=== PATIENT | male | born 1965 | race Caucasian/White ===

== ENCOUNTER 2017-12-05 08:18 | Inpatient (IN) | payer OTHER, SELFPAY ==
[2017-10-02 12:43] VITALS: BMI 34.0
[2017-12-05] VITALS (15 sets, daily range): BP systolic 140–163; BP diastolic 78–110; PULSE 78–96; RESP 10–20; TEMP 36.4–37.1; O2SAT 93–98; BMI 34.0
--- NOTE | 2017-12-05 | DI.RAD.S_ITS ---
PROCEDURE: XR KNEE LT 1TO2V INDICATIONS: POST OP TOTAL LEFT KNEE TECHNIQUE: 2 view(s) of the knee acquired. [facility] [place], MARIELENA, XR KNEE ARTHRITIC SERIES BI, 08/23/2017, 11:03. FINDINGS: Bones: Patient is status post knee joint arthroplasty. Hardware components are in expected positions. Visualized bony structures are intact. Soft tissues: Overlying postoperative changes are noted. IMPRESSION: Acute postoperative changes total left knee arthroplasty. Dictated by: Michael Bowie M.D. on 12/05/2017 at 14:23 Approved by: Michael Bowie M.D. on 12/05/2017 at 14:24
[2017-12-05] MEDS: ACETAMINOPHEN 325 MG TABLET 975 MG PO ×3 (09:10→21:04)
[2017-12-05] MEDS: CELECOXIB 200 MG CAPSULE PO (09:11)
[2017-12-05] MEDS: PREGABALIN 75 MG CAPSULE PO (09:11)
[2017-12-05] MEDS: LACTATED RINGERS 1,000 ML 42 ML IV (09:30)
--- NOTE | 2017-12-05 10:50 | SUR.OPER ---
Supine on padded OR bed. Pillow under head, arms secured on padded armboards <90 degree abduction. Safety belt across torso. Non-operative leg secured with tape over blanket over lower leg. Operative leg secured in DeMayo/Bob positioner. Foam padded brace at thigh of operative leg.
--- NOTE | 2017-12-05 10:54 | PM.PREOP ---
Pre-operative Note Interval Note Pre-op Check: Yes History & Physical Reviewed by Physician and Yes Exam Performed Changes: No
--- NOTE | 2017-12-05 10:55 | P.OP_ITS ---
Operative Date/Time/Diagnoses Date of procedure: 12/05/17 Time of procedure: 13:15 Pre-op diagnosis: Left knee osteoarthritis Post-op diagnosis: same Procedure & Clinicians Procedure: Left total knee arthroplasty Same procedure as scheduled: Yes Indications: The patient presents today for total knee arthroplasty after failure of conservative treatment. The nature of the procedure including the risks and benefits, alternatives, postoperative course and expected outcome were discussed and all questions answered. Consent was obtained. Operative site confirmed and marked. Surgeon: Joseph Yanes Construction Worker: Lucero Mcclellan Anesthesia Type: General, Spinal, Peripheral nerve block and Local Operative Notes Findings: Severe osteoarthritis with varus alignment. Range of motion after anesthesia was 5-95 degrees. Closure Type: primary Specimen(s): none sent Implants & Drains: [employer] BCS: 6 femoral component, 7 tibial component, 9 mm BCS polyethylene tray and 35 x 9 mm round patella Applied: implant(s) Estimated Blood Loss (mL): 50 Tourniquet time (min): 46 Procedure in detail: The patient was taken to the operative suite and placed under spinal and general anesthesia with an adductor nerve block. The patient was given prophylactic antibiotics prior to surgery. The patient was also given tranexamic acid, 1 g, just prior to surgery for postoperative hemostasis. [The lateral knee was prepped and the joint injected with 20 mL of 1% Lidocaine with epinephrine. ] The knee was then prepped and draped in usual sterile fashion. The leg was exsanguinated with an Esmarch dressing and the tourniquet raised to [250] torr. A 15 cm anterior incision was made. Next a medial trivector arthrotomy was made. The extensor mechanism was marked to ensure accurate repair. Initial exposing dissection was carried out medially and laterally. The knee was then extended and the patellar thickness was measured and a cut made removing approximately [9] mm of bone[ with a goal of restoring normal patellar thickness ]. The patella was then sized and drilled. Some excess lateral bone was excised and the patellofemoral ligament released. The tourniquet was then released. The knee was then flexed and the [employer] femoral guide was placed. The anterior pins were placed and the distal rotation holes drilled. The distal cutting guide was placed and the templated distal femoral cut was made. The templating cutting block was then placed and the anterior, posterior and chamfer cuts made. The [employer] tibial guide was placed and the alignment checked along the axis of the proximal tibial with a renea. The proximal tibial cut was then made with an oscillating saw. All meniscus and bony debris was then removed. Flexion extension gaps were checked. After routine removal of osteophytes there was still some slight medial tightness which was released with a 18 gauge needle in the mcl. The soft tissues were then injected with a combination of [20 mL of half percent Marcaine with epinephrine and 20 mL of Exparel]. The trial components were then placed. The knee went into full extension and flexion beyond 120?. There was [excellent] medial- lateral balance throughout motion. Patellar tracking was [excellent]. The trial components were removed and size is confirmed for the final implants. The knee was then exsanguinated with an Esmarch dressing and the tourniquet reapplied for cementing. The knee was cleansed with Pulsavac irrigation and dried. The final components were cemented in with high viscosity vacuum mixed bone cement with antibiotics. The knee was held in extension and the patellar clamp until the cement had adequately cured. The knee was then irrigated with dilute Betadine solution. The extensor mechanism was closed with 5 interrupted #1 Vicryl sutures in 90 degrees of flexion. [The joint was then injected with a combination of 1 g of tranexamic acid and 20 mL of quarter percent Marcaine with epinephrine.] The subcutaneous tissue was closed with 2-0 Vicryl. The skin was closed with [ micah and surgical adhesive]. [ An Aquacell] dressing and Anant wrap were then applied. Complications: none Condition: stable Disposition: PACU Plan for aftercare: Routine postoperative protocol for total knee arthroplasty. Aspirin for DVT prophylaxis. Discharge home tomorrow.
--- NOTE | 2017-12-05 11:16 | SUR.PREOP ---
Block start time 1100[] . Monitoring initiated and maintained throughout procedure. Oxygen and medications given per anesthesiologist instructions. Patient remained stable throughout procedure, no adverse reactions noted. Block end time 1109[].
--- NOTE | 2017-12-05 11:18 | PM.PROC.1 ---
Procedures Date/Time Date of procedure: 12/05/17 Time of procedure: 10:55 General Procedure description: Ultrasound guided adductor canal nerve block for post op pain control after Left TKA by Dr. Yanes. Risk and benefits of procedure discussed with patient. ASA monitoring applied to patient. O2 given via nasal cannula. 2 mg Versed and 50 mcg fentanyl given for procedural sedation. Skin site was prepped with chlorhexidine and allowed to fully dry. Sterile gloves, mask, hat and probe cover were used to maintain sterility. 2% lidocaine and 30ga needle was used to make a small skin wheal at needle insertion site. Under ultrasound guidance, a 21ga 100mm Pajunk needle was directed into the adductor canal near femoral artery and saphenous nerve at the level of mid thigh. Patient reported no parasthesias. After negative aspiration, 20 mL 0.5% ropivicaine and 10mg dexamethasone were injected around saphenous nerve. Patient tolerated procedure well.
--- NOTE | 2017-12-05 11:23 | SUR.PREOP ---
pt monitored on pulse ox until he leaves for OR currently pulse 66 and o2 sat on room air is 98%.
[2017-12-05] MEDS: CEFAZOLIN 1 GM VIAL 2 GM IV (11:30)
[2017-12-05] MEDS: LIDOCAINE 1% W/EPI INJ 20 ML INJ (12:00)
[2017-12-05] MEDS: BUPIVACAINE 0.5% W/ EPI (PF) 20 ML, BUPIVACAINE LIPOSOME 266 MG, SODIUM CHLORIDE 0.9% 2... INJ (12:39)
[2017-12-05] MEDS: POVIDONE-IODINE 15 ML, SODIUM CHLORIDE 0.9% 250 ML TOP (12:40)
[2017-12-05] MEDS: BUPIVACAINE 0.5% (PF) 10 ML, TRANEXAMIC ACID 1,000 MG, SODIUM CHLORIDE 0.9% 20 ML INJ (12:40)
--- NOTE | 2017-12-05 14:02 | SUR.PHASEI ---
Mild confusion when awake throughout PACU stay.
[2017-12-05] MEDS: OXYCODONE/ACETAMINOPHEN 5/325 TABLET 1 TAB PO (14:05)
--- NOTE | 2017-12-05 14:34 | SUR.PHASEI ---
Inhaler with clothes to room 209.
--- NOTE | 2017-12-05 14:56 | PC.NURSE ---
Patient has all four rails up in bed and bed alarm on. Per nurse Morrison
--- NOTE | 2017-12-05 14:57 | PC.NURSE ---
1425 Pt arrived from PACU via bed to room 209. Pt is aswake, OX3, Saline lock LUE. Pt has hx of htn, B/p 150/101. Pt states uses garlic and cranberry juice to reduce B/P. R TKA site is covered with an sophy wrap. CMS +, Pt denies pain at this time. Family at bedside. The Mom took Pt wallet & watch home. 1450 Pt taking in juice &crackers, denies nausea. 1510 Pt oob for ambulation in peter with PT.
--- NOTE | 2017-12-05 15:25 | PT.IIE ---
Current Diagnoses Unilateral primary osteoarthritis, left knee (12/05/17) Surgery Performed Operation Date: 12/05/17 10:15 Actual Procedures p Total Knee Arthroplasty(Left) - Joseph Yanes MD Surgical History (Last Updated 10/02/17 @ 13:46 by Florinda Macedo, RN) History of shoulder surgery (Acute) Hx of arthroscopy of left knee (Acute) Hx of repair of left rotator cuff (Acute) Hx of tonsillectomy (Acute) Medical History (Last Updated 10/02/17 @ 14:10 by Florinda Macedo RN) Asthma (Acute) Cervical spinal cord injury (Acute) Depression (Acute) Dupuytren's contracture of both hands (Acute) Finger amputation, traumatic (Acute) GERD (gastroesophageal reflux disease) (Acute) HTN (hypertension) (Acute) Lumbar spinal cord injury (Acute) PTSD (post-traumatic stress disorder) (Acute) Spinal stenosis (Acute) [place] teeth extracted (Acute) Physical Therapy Inpatient Evaluation/Re-Eval M1 PT/OT-IP Prior Functional Status Start: 12/05/17 15:52 Freq: NEEDED Status: Active Protocol: Document 12/05/17 14:58 MDD (Rec: 12/05/17 16:03 MDD [email or web address]) Medical Review Prior Functional Status Medical History Reviewed Yes Communication nml Mobility and Gait independent Activities of Daily Living and IADL's independent Prior Functional Level (Other details) independent Social History Household Members none Living Arrangements House Number of Floors (Floors) One Floor Number of Stairs To Enter/Railing? 4 steps, R railing when ascending Home Environment High Toilet Walk in Shower Home Equipment Front Wheel Walker Straight Cane Crutches Raised Toilet Seat w/Armrests Employment Status Retired Additional Social History Comment Pt has lofstrand crutches at home. His mother is coming to stay with him initially after surgery. Has a friend coming to pick him up from the hospital upon d/c. Notes that he has close neighbors that can assist if needed as well. M2 PT-IP Current Condition Start: 12/05/17 15:52 Freq: NEEDED Status: Active Protocol: Document 12/05/17 14:58 MDD (Rec: 12/05/17 16:03 MDD [email or web address]) Physical Therapy Current Condition Current Condition Evaluation Date 12/05/17 Treatment Diagnosis s/p L TKA Onset Date 12/05/17 Weight Bearing Status Weight Bearing Status Weight Bear as Tolerated M3 PT-IP Subjective Start: 12/05/17 15:52 Freq: NEEDED Status: Active Protocol: Document 12/05/17 14:58 MDD (Rec: 12/05/17 16:03 MDD [email or web address]) Subjective Physical Therapy Visit Type Type Initial Evaluation Visit Start Time 14:58 Visit Stop Time 15:25 Total Visit Minutes 27 Number of FINAL ASSEMBLY INSPECTOR Visits 0 Physical Therapy Visit Comments Patient Comments Pt reporting pain in L knee but agreeable to participation in PT eval this afternoon. Had just recieved pain medication at start of session , but reports that he gets really sedated and would prefer to participate before they kick in. Therapy Pain Assessment Pain When Pain Assessed At Rest Pain Present Pain Present Pain Reported Location Left Knee Intensity 5 Scale Used Numeric (1 - 10) Description Aching Pressure M4 PT-IP Mobility and Gait Start: 12/05/17 15:52 Freq: NEEDED Status: Active Protocol: Document 12/05/17 14:58 MDD (Rec: 12/05/17 16:03 MDD [email or web address]) PT-Bed Mobility Assessment Rolling Type of Rolling Roll to Left Level of Assist Standby Assistance Supine to Sit Supine to Sit Standby Assistance Sit to Supine Sit to Supine Standby Assistance Scooting Scooting to Edge of Bed Independent Scooting Up and Down in Bed Independent PT-Transfer Assessment Sit to and From Stand Sit to and from Stand Contact Guard Assistance Equipment Transfer Assistive Device Gait Belt Front Wheeled Walker Transfers Transfer Destination Toilet Transfer Ability Level of Assist Contact Guard Assistance Gait Assessment Gait Gait Assistance Required: Contact Guard Assist Distance (Feet) (feet) 212 Able to Maintain Weight Bearing Status Yes During Gait Assistive Devices Assistive Device Front Wheeled Walker Gait Deviations General Gait Pattern Antalgic Wide Based Gait PT-Balance Assessment Sitting Balance and Reactions Static Sitting Balance Ability Normal Dynamic Sitting Balance Ability Normal Standing Balance and Reactions Static Standing Balance Ability Good Dynamic Standing Balance Ability Good M5 PT-IP Objective Assessments Start: 12/05/17 15:52 Freq: NEEDED Status: Active Protocol: Document 12/05/17 14:58 MDD (Rec: 12/05/17 16:03 MDD [email or web address]) Orientation Orientation/Cognition Level of Alertness Alert Orientation Name Age Birthday Month Date Year Day of Week Place Situation Language Function Ability No Deficits Noted Safety Awareness Understands Safety Issues Memory Description No Deficits Noted Gross Range of Motion Lower Extremity ROM Assessment Within Functional Limits Strength Lower Extremity Strength Assessment Within Functional Limits Sensation Assessment Sensation Gross Sensation WNL M6 PT-IP Treatment Start: 12/05/17 15:52 Freq: NEEDED Status: Active Protocol: Document 12/05/17 14:58 MDD (Rec: 12/05/17 16:03 MDD [email or web address]) Physical Therapy Treatment Exercises Knee ROM Measurement 0-89 Education Education Provided Precautions Weight Bearing Status Post-Op Packet Safety M7 PT-IP Assessment and Plan Start: 12/05/17 15:52 Freq: NEEDED Status: Active Protocol: Document 12/05/17 14:58 MDD (Rec: 12/05/17 16:03 MDD [email or web address]) PT Summary Assessment and Plan Potential Rehabilitation Potential Excellent Status of Condition at Evaluation Stable Summary Impairments Pain ROM Balance Bed Mobility Transfers Gait Activity Tolerance Progress Towards Goals Progressing Toward Goals Assessment Summary Pt demonstrates SBA to independent bed mobility. Demonstrated safety with gait up to 212 feet with CGA. Will benefit from stair training prior to d/c. Goals Bed Mobility Goal Independent Transfer Goal Independent Gait Goal Independent Gait Distance 200 feet Other Goals Ascend/descend 4 stairs with R hand railing Days to Meet Goals 3 Frequency of Treatment Frequency Of Treatment Twice a Day Treatment Plan Physical Therapy Treatment Plan Gait Training Therapeutic Exercise Other Recommendations and Next Treatment stair training perhaps with Focus cane or lofstrand crutch if needed. Review HEP. Recommendations To Nursing Amount of Assist Needed 1 Person Assist Discharge Recommendations PT Discharge Recommendations Home Home with Assistance
[2017-12-05] MEDS: LACTATED RINGERS 1,000 ML 125 ML IV ×2 (15:28→23:30)
[2017-12-05] MEDS: OXYCODONE IR 5 MG TABLET 10 MG PO ×3 (17:09→23:31)
--- NOTE | 2017-12-05 18:47 | PC.NURSE ---
Pt up with physical therapy ambulatory in hallway. Returned to bed. Rates pain to left knee 3-4 and dull in nature. Administered oxycodone as ordered. C/M/S intact to LLE. Anant wrap with ice to site. BL calf scd's in place. Up to bathroom with assist x 1. Steady gait. Able to void. Taking general diet well. Pt reports anticipates discharge to home tomorrow.
[2017-12-05] MEDS: CEFAZOLIN 2 GM/100 ML FROZ.PIGGY IV (19:53)
[2017-12-05] MEDS: ASPIRIN EC 81 MG TABLET PO (23:30)
--- NOTE | 2017-12-06 01:15 | PC.NURSE ---
Addendum entered by Radha Dozier R.N. 12/06/17 06:02: Slept at intervals. Earlier stated pain was only 2/10 and declined intervention but now states pain is 5/10 so medicated with Oxycodone. Offered ice pack but patient declines. SCD's off for past hour and now replaced. Original Note: Patient is alert and oriented; very talkative and detailed in conversation. Breath sounds CTA with RA sat of 98%. HRR. Denies nausea. BT present and states he is passing flatus. Stood at side of bed to use urinal and seemed steady on feet. Was able to get in/out of bed independently. Denies dysuria, frequency, urgency or incontinence. Anant wrap to left knee is CDI. At shift change he had complained of 5/10 left knee (above patella) pain and was medicated with Oxycodone and now states he is pain free. CMS is intact. Wearing bilateral SCD's. Due to hx of falls his fall risk assessment is high so bed alarm is activated.
[2017-12-06 04:15] VITALS: BP 136/84; PULSE 85; RESP 16; TEMP 36.5; O2SAT 97
[2017-12-06] MEDS: CEFAZOLIN 2 GM/100 ML FROZ.PIGGY IV (04:29)
[2017-12-06] MEDS: PANTOPRAZOLE 40 MG TABLET PO (05:56)
[2017-12-06] MEDS: OXYCODONE IR 5 MG TABLET 10 MG PO ×2 (05:59→11:26)
[2017-12-06 06:25] LABS: Hematocrit 39.6 % (41-53); Hemoglobin 13.4 g/dL (13.5-17.5)
--- NOTE | 2017-12-06 07:34 | PM.DS.1 ---
History of Present Illness Date Patient Seen: 12/06/17 Time Patient Seen: 07:00 Chief complaint: [address] Narrative: Patient seen post-op day #1 s/p L. TKA. Doing well, pain is well controlled and is ambulating well with PT. Denies SOB, CP, or calf pain. Discharge Providers Date of admission: 12/05/17 08:18 Consults: 12/05/17 14:18 Consult to Discharge Planning Routine Comment: Consult to Physical Therapy Evaluate & Treat Comment: Physician Instructions: postop TKA protocol Consult to Respiratory Therapy Evaluate & Treat Comment: Physician Instructions: Evaluate and treat Discharge provider: Lucero Mcclellan PA-C Summary Discharge Diagnosis: left knee osteoarthritis Hospital Course: Patient admitted s/p L. TKA on 12/05/17. Patient tolerated the procedure well with no complications. Patient transferred to the acute care floor. He was seen by PT who recommended that he be discharged with outpatient PT. Patient was stable and ready for d/c on 12/06/17. Status at Discharge Cognitive/behavioral status at discharge: A&Ox4 Functional status at discharge: uses cane/walker Overall status at discharge: patient is progressing back to baseline Time Spent with Patient Less than 30 minutes Exam Vital Signs (past 8 hours): - 12/06/17 04:15 Temperature 97.7 F Pulse Rate 85 Respiratory Rate 16 Blood Pressure 136/84 H Pulse Oximetry 97 Oxygen Delivery Method Room Air Narrative Exam Narrative: Well-developed well-nourished in no acute distress. Patient is alert and oriented x3. On examination surgical dressing is clean dry and intact with no signs of discharge. Calf is soft and compressible. He has full range of motion of the ankle and hip. Patient is neurovascularly intact in the surgical extremity. Objective Labs Result Diagrams: 12/06/17 05:48 Labs: Laboratory Results - last 24 hr 12/06/17 05:48 Hgb 13.4 L Hct 39.6 L Discharge Plan Discharge Plan Patient Disposition: Home, Self-Care Discharge Med Rec/Prescriptions Prescriptions: New acetaminophen 325 mg Tablet 975 mg PO TID Qty: 0 RF: 0 aspirin 81 mg Tablet,Delayed Release (Dr/Ec) 81 mg PO BID Qty: 0 RF: 0 oxycodone 5 mg Tablet 5 mg PO Q3HR PRN (Reason: Pain, Moderate (4-6)) Qty: 0 RF: 0 Continue meloxicam 15 mg Tablet 15 mg PO DAILY PRN (Reason: pain) RF: 0 lidocaine 4 % Cream 1 applic TOPICAL QID PRN (Reason: pain) RF: 0 omeprazole 40 mg Capsule,Delayed Release(Dr/Ec) 40 mg PO DAILY PRN (Reason: gerd) RF: 0 sildenafil [Viagra] 100 mg Tablet 100 mg PO DAILY PRN (Reason: Sexual Activity) RF: 0 fluoxetine 10 mg Capsule 10 mg PO DAILY RF: 0 albuterol sulfate 90 mcg/actuation Hfa Aerosol Inhaler 2 puff INHALATION Q4-6H PRN (Reason: Asthma) RF: 0 Discontinued diclofenac sodium 1 % Gel 2 g TOPICAL QID RF: 0 Follow up/Referrals: [facility] [Provider Group] (Follow up in the office in 5-7 days as previously scheduled) Provider Discharge Instructions Diet: Diet as Tolerated Activity: WBAT, use walker to ambulate Cold/Heat Therapy: ice for 20 minutes at a time at least once an hour while awake Wound Care Report to your healthcare provider any signs of infection, such as:: chills, fever, night sweats, increased pain and unusual drainage Dressing: Keep Aquacel dressing clean and dry. May remove sophy wrap tomorrow Visit Report/Discharge Packet Instructions: DI for Knee Replacement Visit Report Forms: Stroke Signs & Symptoms Discharge Data Attending Provider: Joseph Yanes Admit Date/Time: 12/05/17 08:18 Quality VTE Deep Vein Thrombosis/Pulmonary Embolism Present on Admission: No
[2017-12-06 08:00] VITALS: BP 151/84; PULSE 80; RESP 16; TEMP 36.6; O2SAT 98
--- NOTE | 2017-12-06 09:24 | PT.IPTN ---
Current Diagnoses Unilateral primary osteoarthritis, left knee (12/05/17) Surgery Performed Operation Date: 12/05/17 10:15 Actual Procedures p Total Knee Arthroplasty(Left) - Joseph Yanes MD Physical Therapy Treatment Note M2 PT-IP Current Condition Start: 12/05/17 15:52 Freq: NEEDED Status: Discharge Protocol: Document 12/05/17 14:58 MDD (Rec: 12/05/17 16:03 MDD [email or web address]) Physical Therapy Current Condition Current Condition Evaluation Date 12/05/17 Treatment Diagnosis s/p L TKA Onset Date 12/05/17 Weight Bearing Status Weight Bearing Status Weight Bear as Tolerated M3 PT-IP Subjective Start: 12/05/17 15:52 Freq: NEEDED Status: Discharge Protocol: Document 12/06/17 09:24 MDD (Rec: 12/06/17 12:18 MDD [id number]) Subjective Physical Therapy Visit Type Type Treatment Note Visit Start Time 08:40 Visit Stop Time 09:24 Total Visit Minutes 44 Number of SAMPLE WORKER Visits 0 Physical Therapy Visit Comments Patient Comments Pt reports feeling ready to go home today. Therapy Pain Assessment Pain When Pain Assessed At Rest Pain Present Pain Present Pain Reported Location Left Knee Intensity 5 Scale Used Numeric (1 - 10) Description Aching M4 PT-IP Mobility and Gait Start: 12/05/17 15:52 Freq: NEEDED Status: Discharge Protocol: Document 12/05/17 14:58 MDD (Rec: 12/05/17 16:03 MDD [email or web address]) PT-Bed Mobility Assessment Rolling Type of Rolling Roll to Left Level of Assist Standby Assistance Supine to Sit Supine to Sit Standby Assistance Sit to Supine Sit to Supine Standby Assistance Scooting Scooting to Edge of Bed Independent Scooting Up and Down in Bed Independent PT-Transfer Assessment Sit to and From Stand Sit to and from Stand Contact Guard Assistance Equipment Transfer Assistive Device Gait Belt Front Wheeled Walker Transfers Transfer Destination Toilet Transfer Ability Level of Assist Contact Guard Assistance Gait Assessment Gait Gait Assistance Required: Contact Guard Assist Distance (Feet) (feet) 212 Able to Maintain Weight Bearing Status Yes During Gait Assistive Devices Assistive Device Front Wheeled Walker Gait Deviations General Gait Pattern Antalgic Wide Based Gait PT-Balance Assessment Sitting Balance and Reactions Static Sitting Balance Ability Normal Dynamic Sitting Balance Ability Normal Standing Balance and Reactions Static Standing Balance Ability Good Dynamic Standing Balance Ability Good M5 PT-IP Objective Assessments Start: 12/05/17 15:52 Freq: NEEDED Status: Discharge Protocol: Document 12/05/17 14:58 MDD (Rec: 12/05/17 16:03 MDD [email or web address]) Orientation Orientation/Cognition Level of Alertness Alert Orientation Name Age Birthday Month Date Year Day of Week Place Situation Language Function Ability No Deficits Noted Safety Awareness Understands Safety Issues Memory Description No Deficits Noted Gross Range of Motion Lower Extremity ROM Assessment Within Functional Limits Strength Lower Extremity Strength Assessment Within Functional Limits Sensation Assessment Sensation Gross Sensation WNL M6 PT-IP Treatment Start: 12/05/17 15:52 Freq: NEEDED Status: Discharge Protocol: Document 12/06/17 09:24 MDD (Rec: 12/06/17 12:18 MDD [id number]) Physical Therapy Treatment Exercises Exercises Gluteal Sets Quad Sets Heel Slides Education Education Provided Precautions Weight Bearing Status Post-Op Packet Safety Other Treatments Other Treatment Performed Therapeutic activities: Pt demonstrated ability to dress with SBA. Able to stand to pull shorts up. Required min A for donning shoes. Demonstrated good static balance with brushing teeth, facewashing etc. Gait trainin feet, cues for increased L knee flexion, heel toe pattern. Stair training with single point cane, R hand railing. 2 x 3 steps for 6 total. M7 PT-IP Assessment and Plan Start: 12/05/17 15:52 Freq: NEEDED Status: Discharge Protocol: Document 12/06/17 09:24 MDD (Rec: 12/06/17 12:18 MDD [id number]) PT Summary Assessment and Plan Potential Rehabilitation Potential Excellent Status of Condition at Evaluation Stable Summary Impairments Pain ROM Progress Towards Goals Progressing Toward Goals Assessment Summary Pt demonstrates independence with bed mobility, transfers and gait today. Tolerated stair training well with SBA. Safe to d/c home when medically appropriate. Goals Bed Mobility Goal Independent Transfer Goal Independent Gait Goal Independent Gait Distance 200 feet Other Goals Ascend/descend 4 stairs with R hand railing Days to Meet Goals 3 Frequency of Treatment Frequency Of Treatment Discharge Treatment Plan Physical Therapy Treatment Plan Gait Training Therapeutic Exercise Other Recommendations and Next Treatment stair training perhaps with Focus cane or lofstrand crutch if needed. Review HEP. Recommendations To Nursing Amount of Assist Needed 1 Person Assist Discharge Recommendations PT Discharge Recommendations Home Home with Assistance
[2017-12-06] MEDS: ACETAMINOPHEN 325 MG TABLET 975 MG PO (09:25)
[2017-12-06] MEDS: ASPIRIN EC 81 MG TABLET PO (09:26)
[2017-12-06] MEDS: FLUoxetine 10 MG CAPSULE PO (09:26)
--- NOTE | 2017-12-06 15:52 | CM.DPNOTE ---
DCP Assessment/ DC NOte: Pt is a 52 yo male, resident of [facility]. Pt admitted for scheduled spinal surgery w/Dr Yanes. Pt's PCP is not listed. Insurance is [place] [employer]. Pt is indp in ADLs, retired and lives alone. Pt plans to return home upon DC w/assist from his family and friends. PT agrees that pt can DC home. No barriers to safe DC home. 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 CHRISTA Gaxiola
== END 2017-12-06 11:40 | disposition home or self-care (01) | DRG 470 ==
PROVIDERS: Admitting Provider Orthopaedic Surgery; Visit Provider Orthopaedic Surgery
PROC: 0SRD0JZ Replacement of Left Knee Joint with Synthetic Substitute, Open Approach (ICD-10-PCS; CPT 27447; principal; 2017-12-05 10:15)
DX: M17.12 Unilateral primary osteoarthritis, left knee (principal); I10 Essential (primary) hypertension; K21.9 Gastro-esophageal reflux disease without esophagitis; F32.9 Major depressive disorder, single episode, unspecified; J45.909 Unspecified asthma, uncomplicated
CPT/HCPCS: 36415; 64450; 73560; 85014; 85018; 97110; 97116; 97161; 97530; C1776; C9290; J0690; J1100; J1170; J2250; J2405; J2704; J2795; J3010

== ENCOUNTER 2018-01-25 14:50 | Day surgery (SDC) | payer OTHER, SELFPAY ==
[2017-12-05 15:55] VITALS: BMI 34.0
[2018-01-25] VITALS (7 sets, daily range): BP systolic 139–169; BP diastolic 82–99; PULSE 65–87; RESP 10–19; TEMP 36.4–37.1; O2SAT 96–99; BMI 32.3
[2018-01-25] MEDS: LACTATED RINGERS 1,000 ML 42 ML IV (15:40)
--- NOTE | 2018-01-25 15:43 | PM.PREOP ---
Pre-operative Note Interval Note Pre-op Check: Yes History & Physical Reviewed by Physician and Yes Exam Performed Changes: No
--- NOTE | 2018-01-25 16:38 | PM.OP.1 ---
Operative Date/Time/Diagnoses Date of procedure: 01/25/18 Time of procedure: 17:00 Pre-op diagnosis: Stiffness after left total knee arthroplasty Post-op diagnosis: same Procedure & Clinicians Procedure: Manipulation under anesthesia left total knee Same procedure as scheduled: Yes Indications: The patient presents today for manipulation under anesthesia of left total knee. The patient has failed to get at least 90? of flexion after 6 weeks. The nature of the procedure including the risks and benefits, alternatives, postoperative course and expected outcome were discussed and all questions answered. Consent was obtained. Operative site confirmed and marked. Surgeon: Joseph Yanes Anesthesia Type: General and Local Operative Notes Findings: Preoperative range of motion was 25-85 degrees. Lysis of adhesions was felt during manipulation. Postoperative range of motion was 5-125 degrees with light pressure. The knee flexed to 115? with gravity alone. Closure Type: not applicable Specimen(s): none sent Blood products transfused: none Procedure in detail: The patient was taken the operative suite and placed under general anesthesia. The lateral aspect of the knee was prepped and was then injected with 10 cc of 1% lidocaine with epinephrine, 10 cc of 0.5% Marcaine and 8 mg of dexamethasone. The knee was then manipulated in both extension and flexion. The patella was also manipulated. Lysis of adhesions was felt during the manipulation. Pre and post range of motion measurements are noted above. The patient tolerated the procedure well and was returned to recovery room in good condition. Complications: none Condition: stable Disposition: same day surgery Plan for aftercare: The patient will start aggressive home [id number] exercises over the weekend. He will start physical therapy next Sunday going 5 days per week for the 1st 2 weeks.
[2018-01-25] MEDS: BUPIVACAINE 0.5% (PF) VIAL 10 ML INJ (16:48)
[2018-01-25] MEDS: LIDOCAINE 1% W/EPI INJ 20 ML INJ (16:49)
[2018-01-25] MEDS: DEXAMETHASONE 10 MG/ML VIAL 8 MG IV (16:50)
[2018-01-25] MEDS: HYDROMORPHONE 2 MG INJ 0.25 MG IV ×3 (17:11→17:25)
[2018-01-25] MEDS: OXYCODONE/ACETAMINOPHEN 5/325 TABLET 1 TAB PO (17:27)
--- NOTE | 2018-01-25 17:34 | SUR.PHASEI ---
medicated with dilaudid and percocet for pain, bandaid c/d/i. l knee still looks swollen, pt able to bend and move it. elevated on pillows with ice pack. to opd.
== END 2018-01-25 18:10 | disposition home or self-care (01) ==
PROVIDERS: Visit Provider Orthopaedic Surgery
PROC: (CPT 27570; principal; 2018-01-25 16:15)
DX: M25.662 Stiffness of left knee, not elsewhere classified (principal); M17.12 Unilateral primary osteoarthritis, left knee; Z96.652 Presence of left artificial knee joint; M23.8X2 Other internal derangements of left knee
CPT/HCPCS: 27570; J1100; J1170; J2704; J3010

== ENCOUNTER → 2021-03-25 09:58 | Outpatient (CLI) | payer OTHER, SELFPAY ==
[2017-12-05 15:55] VITALS: BMI 34.0
[2021-03-25 11:43] LABS: COVID19 -Nasal RAPID Negative (Negative)
== END ==
PROVIDERS: Referring Provider Orthopaedic Surgery; Visit Provider Physician Assistant
DX: Z20.822 Contact with and (suspected) exposure to COVID-19 (principal)
CPT/HCPCS: 87635

== ENCOUNTER 2021-03-28 11:21 | Day surgery (SDC) | payer OTHER, SELFPAY ==
[2017-12-05 15:55] VITALS: BMI 34.0
[2021-03-21 08:47] VITALS: BMI 33.5
[2021-03-28] VITALS (20 sets, daily range): BP systolic 127–144; BP diastolic 79–89; PULSE 71–93; RESP 13–19; TEMP 35.4–37.4; O2SAT 90–97; BMI 34.0
--- NOTE | 2021-03-28 11:40 | DI.RAD.S_ITS ---
PROCEDURE: XR KNEE RT 1TO2V INDICATIONS: postop prosthesis placement TECHNIQUE: 2 view(s) of the knee acquired. COMPARISON: [facility], CR, XR KNEE LT 1TO2V, 12/05/2017, 13:45. FINDINGS: Bones: Patient is status post knee joint arthroplasty. Hardware components are in expected positions. Visualized bony structures are intact. Soft tissues: Overlying postoperative changes are noted. IMPRESSION: Satisfactory appearance of the right knee arthroplasty. Dictated by: Eric Forman M.D. on 03/28/2021 at 15:59 Approved by: Eric Forman M.D. on 03/28/2021 at 16:00
[2021-03-28] MEDS: ACETAMINOPHEN 325 MG TABLET 975 MG PO (11:47)
[2021-03-28] MEDS: PREGABALIN 75 MG CAPSULE PO (11:49)
[2021-03-28] MEDS: CELECOXIB 200 MG CAPSULE PO (11:49)
[2021-03-28] MEDS: LACTATED RINGERS 1,000 ML 42 ML IV (12:10)
--- NOTE | 2021-03-28 12:23 | PM.PREOP ---
Pre-operative Note COVID-19 COVID-19 status: Negative Result date/Date tested (Pos, Neg/Pending): 03/25/21 Interval Note History & Physical reviewed/Exam performed by Physician: Yes Changes to H&P: No
--- NOTE | 2021-03-28 13:13 | P.OP_ITS ---
Operative Date/Time/Diagnoses Date of procedure: 03/28/21 Time of procedure: 14:55 Pre-op diagnosis: Right knee osteoarthritis Post-op diagnosis: same Procedure & Clinicians Procedure: Right total knee replacement Same procedure as scheduled: Yes Indications: The patient has had progressively worsening right knee pain with radiographic changes consistent with arthritis. Non-operative management has failed and the patient has requested total knee replacement. The risks, benefits and alternatives to surgery were discussed with the patient prior to proceeding. Risks discussed included, but were not limited to, failure to relieve pain, stiffness, infection, nerve damage, deep venous thrombosis, pulmonary embolism, stroke, coma, heart attack, permanent paralysis and , as well as the potential need for eventual revision of the prosthetic. Surgeon: Gus Carrera Layout Former: Madonna Marrero Click Yes if Unassisted: No Anesthesia Type: General, Spinal and Local Operative Notes Findings: Severe tricompartmental osteoarthritis with large osteophytes. Closure Type: primary Specimen(s): none sent Prosthetic devices, grafts, tissues, transplants, or devices: Implants used in this procedure were manufactured by the [employer] and included the BCS II Journey total knee replacement with a size 6 right Oxinium femur, a size 6 right non porous tibial base plate, a 9 mm cross-linked polyethylene tibial insert and a 35 mm oval Haylee II patella. Applied: implant(s) Estimated Blood Loss (mL): 50 Blood products transfused: none Tourniquet time (min): 54 Procedure in detail: The patient was seen in the pre-operative area, where the patient identified the right knee as the operative site and this was marked with my initials. The patient received pre-operative antibiotics, and was taken to the operating room and placed on the operative table in the supine position. After satisfactory anesthesia, a full time babysitter out was performed. The right leg was encircled with a tourniquet about the proximal thigh, and the leg was prepared from the toes to the tourniquet with ChloroPrep in the usual fashion and draped through sterile drapes. The leg was elevated and exsanguinated with Eschmark bandage and the tourniquet inflated to 250 mmHg pressure. The knee was approached through an approximately 18 cm incision centered over the patella and carried into the knee through a medial parapatellar arthrotomy. The anterior osteophytes and soft tissues were removed. The rotational landmarks of [place]'s line and the transepicondylar axis were marked on the femur with electrocautery, and intramedullary guide holes for the femur and tibia were created. The distal femoral cut was made in 6 degrees of valgus using the intramedullary guide at the primary cut setting. The proximal tibial cut was then made using the intramedullary guide, taking 9 mm of bone off the less involved side. The extension gap was checked and the rotation of the femoral component confirmed with the gap balancing system. The anterior, posterior and chamfer cuts were then made. The posterior osteophytes and soft tissues were then removed. The posterior capsule was injected with part of a mixture of 60 ml 0.25% Marcaine mixed with 20 ml Exparel and 4 mg of morphine for post-operative pain control. The remainder of this mixture was injected into the capsule and subcutaneous tissues during cement curing. The tibia was prepared with the rotation set by an extra medullary guide. Trial tibial and femoral components were then placed and the intercondylar notch cut through the femoral trial. Range of motion was 0-135 degrees, with good stability throughout the range. The patella was then cut to accommodate the patellar prosthetic. There was no need for a lateral release. The trials were then removed, and the femoral hole plugged with a bone plug. The bone was prepared with pulsatile lavage, and dried with a sponge. Cement was applied and the final prosthetics placed. Excess cement was removed during and after cement curing. After confirming there was no extruded cement posteriorly, the final tibial insert was placed. The knee was copiously irrigated and the tourniquet deflated. Hemostasis was obtained. The capsule was closed with interrupted # 2 polyester suture. The subcutaneous layer was closed with 3-0 Vicryl, and the skin with a running 3-0 V-Lock suture and Dermabond. An Aquacel Ag dressing was applied and the patient was taken to recovery having tolerated the procedure well. Complications: none Post-operative Condition: stable Disposition: PACU Plan for aftercare: The patient will be maintained on a standard total knee replacement protocol with weight bearing as tolerated. The patient will receive aspirin and sequential compression devices for DVT prophylaxis. The patient will be discharged home when safe for the home environment.
[2021-03-28] MEDS: CEFAZOLIN 1 GM VIAL 2 GM IV (13:25)
[2021-03-28] MEDS: TRANEXAMIC ACID 1,000 MG VIAL 1000 MG INJ ×2 (13:25→14:31)
--- NOTE | 2021-03-28 13:38 | SUR.OPER ---
Supine on padded OR bed. Pillow under head, arms secured on padded armboards <90 degree abduction. Safety belt across torso. Non-operative leg secured with tape over blanket over lower leg. Operative leg secured in DeMayo positioner. Foam padded brace at thigh of operative leg.
[2021-03-28] MEDS: BUPIVACAINE LIPOSOME 266 MG/20 ML VIAL INJ (13:48)
[2021-03-28] MEDS: BUPIVACAINE 0.25% (PF) 60 ML, EPINEPHrine 0.3 MG INJ (13:48)
[2021-03-28] MEDS: MORPHINE 4 MG/ML INJ INJ (13:50)
[2021-03-28] MEDS: OXYCODONE IR 5 MG TABLET PO ×2 (15:25→20:56)
[2021-03-28] MEDS: HYDROMORPHONE 2 MG INJ IV (15:39)
--- NOTE | 2021-03-28 16:34 | SUR.PHASEI ---
Patient transferred to room 213 in bed alert and oriented with pain 08/21. Pt transferred with belongings. SBAR report to Marina PATINO. Bed in low position. Call light in reach.
[2021-03-28] MEDS: OXYCODONE IR 10 MG TABLET PO (16:50)
[2021-03-28] MEDS: ACETAMINOPHEN 325 MG TABLET 650 MG PO ×2 (16:52→20:57)
[2021-03-28] MEDS: hydrOXYzine pamoate 25 MG CAPSULE PO (16:53)
[2021-03-28] MEDS: LACTATED RINGERS 1,000 ML 100 ML IV (16:55)
--- NOTE | 2021-03-28 18:43 | PC.NURSE ---
Addendum entered by Lea Martinez R.N. 03/28/21 18:46: Awaiting pt to void. Reported off to oncoming shift. Original Note: Pt arrived Alert ox3. VSS, afebrile on 2 LNC. Pt with sophy wrap to R knee c/D/I. Pt reports pain 09/20 -710 controlled well with 10mg PRN oxycodone. CMS intact He denies n/v, able to advance po to general diet this evening.
[2021-03-28] MEDS: DOCUSATE 100 MG CAPSULE PO (20:56)
[2021-03-28] MEDS: ASPIRIN EC 81 MG TABLET PO (20:57)
[2021-03-29 00:06] VITALS: BP 149/79; PULSE 88; RESP 18; TEMP 36.6; O2SAT 96
[2021-03-29] MEDS: OXYCODONE IR 10 MG TABLET PO ×3 (00:36→11:33)
[2021-03-29] MEDS: LACTATED RINGERS 1,000 ML 100 ML IV (00:39)
[2021-03-29] MEDS: HYDROMORPHONE 2 MG TABLET PO (02:55)
--- NOTE | 2021-03-29 07:29 | PM.DS.1 ---
History of Present Illness History of Present Illness Date Patient Seen: 03/29/21 Time Patient Seen: 07:29 Chief complaint: Right Total Knee Arthroplasty *OPB* Narrative: The history and physical is contained in the chart previously completed note. Please refer to that note for this information. Discharge Providers Provider Date of admission: March 28, 2021 Discharge Date: 03/29/21 Consults: 03/28/21 16:19 Consult to Discharge Planning Routine Comment: Consult to Physical Therapy Evaluate & Treat Comment: Physician Instructions: postop TKA protocol Discharge provider: Gus Carrera MD Summary Hospital Course Discharge Diagnosis: 1. Osteoarthritis of right knee Hospital Course: The patient was admitted to the hospital and taken directly to the operating room on March 29, 2021. They underwent a right total knee replacement without complications. A postoperative day 1 they were stable and ready for discharge home. Status at Discharge Cognitive/behavioral status at discharge: at baseline, oriented Functional status at discharge: uses cane/walker Overall status at discharge: patient is progressing back to baseline Time Spent with Patient Time spent: Less than 30 minutes Exam Vital Signs (past 8 hours): - 03/29/21 00:06 Temperature 97.9 F Pulse Rate 88 Respiratory Rate 18 Blood Pressure 149/79 H Pulse Oximetry 96 Oxygen Delivery Method Room Air Oxygen Flow Rate 0 Narrative Exam Narrative: Right knee wound is dressed with no drainage on the bandage. Calf is soft. Light touch and motion are intact in the right lower extremity. [facility] Medical History Asthma Cervical spinal cord injury Depression Dupuytren's contracture of both hands Finger amputation, traumatic GERD (gastroesophageal reflux disease) HTN (hypertension) Lumbar spinal cord injury PTSD (post-traumatic stress disorder) Spinal stenosis Surgical History History of shoulder surgery History of total left knee replacement (12/05/17) Hx of arthroscopy of left knee Hx of repair of left rotator cuff Hx of tonsillectomy [place] teeth extracted Social History household members: none Smoking Status: Former smoker alcohol intake: current Discharge Assessment & Plan Assessment and Plan Assessment: Stable postoperative day 1 status post right total knee replacement. He appears to be ready for discharge home. Plan of Treatment: Discharge to home with follow-up in my office in 10-14 days. Prescriptions for oxycodone and hydroxyzine have been sent to [facility] in [place]. Instructions have also been given for the use of Tylenol for pain control and the use of low-dose aspirin for DVT prophylaxis. He will have outpatient physical therapy. Discharge Plan Discharge Plan Patient Disposition: Home Discharge orders & Medications Discharge Orders: Discharge (Order); Ordered 03/29/21 Ordered By: Gus Carrera Prescriptions: New acetaminophen 325 mg Tablet 650 mg PO TID 30 Days Qty: 180 0RF aspirin 81 mg Tablet,Delayed Release (Dr/Ec) 81 mg PO BID 42 Days Qty: 84 0RF oxycodone 5 mg Tablet 5 mg PO Q4H PRN (Reason: Pain, Moderate (4-6)) Qty: 40 0RF hydroxyzine pamoate 25 mg Capsule 25 mg PO Q6HR PRN (Reason: Nausea) Qty: 30 0RF Continued lisinopril 5 mg Tablet 5 mg PO DAILY 0RF naproxen sodium 220 mg Capsule 660 mg PO DAILY PRN (Reason: Pain) 0RF lidocaine 4 % Cream 1 applic TOPICAL QID PRN (Reason: pain) 0RF omeprazole 40 mg Capsule,Delayed Release(Dr/Ec) 40 mg PO DAILY PRN (Reason: gerd) 0RF fluoxetine 10 mg Capsule 10 mg PO DAILY 0RF albuterol sulfate 90 mcg/actuation Hfa Aerosol Inhaler 2 puff INHALATION Q4-6H PRN (Reason: Asthma) 0RF Follow up/Referrals: Gus Carrera MD [Physician] - 2 Weeks Diet/Activity/Treatments Diet: Diet as Tolerated and Regular Activity: You may bear weight as tolerated on your right leg. Cold/Heat Therapy: Apply ice to the right knee for 15 minutes every hour as needed for pain control. Skin/Wound/Dressing Care Report to your healthcare provider any signs of infection, such as:: chills, fever, night sweats, increased pain, unusual drainage and unusual redness Dressing: You may remove the Anant wrap 3 days after surgery and shower normally with the deeper dressing in place. Leave the deeper dressing in place until follow-up. If the central strip of the deep dressing becomes saturated with either water or blood, please call the office to have it changed. Visit Report/Discharge Packet Instructions: DI for Knee Replacement, DI for Constipation, How to Prevent Falls Stand Alone Forms: Surgery Discharge Discharge Data Attending Provider: Gus Carrera
[2021-03-29 07:33] VITALS: BP 149/84; PULSE 80; RESP 16; TEMP 37.3; O2SAT 97
[2021-03-29 07:49] LABS: Hematocrit 40.7 % (41-53); Hemoglobin 13.8 g/dL (13.5-17.5)
[2021-03-29] MEDS: FLUoxetine 10 MG CAPSULE PO (08:02)
[2021-03-29] MEDS: DOCUSATE 100 MG CAPSULE PO (08:02)
[2021-03-29] MEDS: ASPIRIN EC 81 MG TABLET PO (08:02)
[2021-03-29] MEDS: lisinopriL 5 MG TABLET PO (08:02)
[2021-03-29] MEDS: ACETAMINOPHEN 325 MG TABLET 650 MG PO ×2 (08:02→11:32)
--- NOTE | 2021-03-29 10:14 | PT.IIE ---
Current Diagnoses Unilateral primary osteoarthritis, right knee (03/28/21) Surgery Performed Operation Date: 03/28/21 12:45 Actual Procedures p Total Knee Arthroplasty(Right) - Gus Carrera MD Medical History (Last Reviewed 03/28/21 @ 11:37 by Chaitanya Gaston RN) Asthma Cervical spinal cord injury Depression Dupuytren's contracture of both hands Finger amputation, traumatic GERD (gastroesophageal reflux disease) HTN (hypertension) Lumbar spinal cord injury PTSD (post-traumatic stress disorder) Spinal stenosis Physical Therapy Inpatient Evaluation/Re-Eval M1 PT/OT-IP Prior Functional Status Start: 03/29/21 08:37 Freq: NEEDED Status: Active Protocol: Document 03/29/21 10:14 AW (Rec: 03/29/21 11:59 AW [id number]) Medical Review Prior Functional Status Medical History Reviewed Yes Communication WNL Mobility and Gait Pt uses lofstrand crutches more often recently due to back and knee pain. He states he is able to walk 1/2 hour at the most. Activities of Daily Living and IADL's Independent with all ADL's and driving. Prior Functional Level (Other details) Pt had L TKA in 2018 and needed VINAYAK. Social History Household Members none Living Arrangements House Number of Stairs To Enter/Railing? 4 AC with wide bilateral rails and can only use one at a time. 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 His mom will stay with him for 2 weeks after surgery and pt states she will be able to assist as needed. M2 PT-IP Current Condition Start: 03/29/21 08:37 Freq: NEEDED Status: Active Protocol: Document 03/29/21 10:14 AW (Rec: 03/29/21 11:59 AW [id number]) Physical Therapy Current Condition Current Condition Evaluation Date 03/29/21 Treatment Diagnosis R TKA; impaired mobility and gait Onset Date 03/28/21 M3 PT-IP Subjective Start: 03/29/21 08:37 Freq: NEEDED Status: Active Protocol: Document 03/29/21 10:14 AW (Rec: 03/29/21 11:59 AW [id number]) Subjective Physical Therapy Visit Type Type Initial Evaluation Visit Start Time 09:44 Visit Stop Time 10:14 Total Visit Minutes 30 Number of CLOTH EDGE SINGER Visits 0 Physical Therapy Visit Comments Patient Comments Pt is willing to participate with PT Patient Goals Return home today Therapy Pain Assessment Pain When Pain Assessed During Mobility Pain Present Pain Present Pain Reported Location right knee Intensity 6 Scale Used 3/10 at rest Pain Management Techniques Apply Cold,Re-positioning, Timing of Activity with Medications M4 PT-IP Mobility and Gait Start: 03/29/21 08:37 Freq: NEEDED Status: Active Protocol: Document 03/29/21 10:14 AW (Rec: 03/29/21 11:59 AW [id number]) PT-Bed Mobility Assessment Supine to Sit Supine to Sit Standby Assistance Scooting Scooting to Edge of Bed Standby Assistance PT-Transfer Assessment Sit to and From Stand Sit to and from Stand Contact Guard Assistance,Use of Upper Extremities Equipment Transfer Assistive Device Gait Belt,Front Wheeled Walker Orthotic/Prosthetic Devices or Brace: No Transfers Transfer Destination Chair Transfer Technique ambulated with FWW Transfer Ability Level of Assist Standby Assistance Comments Mobility Comments Pt was lying in bed as PT arrived. With bed flat, he completed supine to sit SBA and was able to sit EOB without need for UE support. He stood using FWW for steadiness and ambulated with FWW SBA to the toilet, pushing the walker over the toilet and standing to void. He stepped backward out of the bathroom with FWW and proceeded to ambulate to the therapy stairs. After stair training, pt returned to the room and transferred to the chair SBA with good safety awareness. He stood again SBA and returned to the chair. Pt was left with call light and tray table in reach, fresh ice packs on right knee. Gait Assessment Gait Gait Assistance Required: Standby Assistance Distance (Feet) 150 Able to Maintain Weight Bearing Status Yes During Gait Assistive Devices Assistive Device Gait Belt,Front Wheeled Walker Orthotic/Prosthetic Devices or Brace: No Gait Deviations General Gait Pattern Antalgic,Decreased Stride Length,Decreased Feet Clearance,Flexed Trunk,Step-to Gait Factors Limiting Gait Function Factors Limiting Gait Function Decreased Strength,Limited Range of Motion,Pain Comments Gait Comments Pt ambulated with significantly antalgic gait and forward trunk translation in right stance phase. Stair Climbing Assessment Evaluation Level of Assist On Stairs Standby Assistance Devices Stair Climbing Assistive Devices Forearm Crutches,Right Railing Technique/Endurance Stair Climbing Direction Ascend and Descend Stair Climbing Technique Step to Step Number of Steps Climbed 3 Query Text: Stair Climbing Set # Repetitions (reps) 2 Comments Stair Climbing Comments Pt completed one set with B rails, second set with R rail ascending and lofstrand crutch in opposite side. He was able to sequence independently after education and demo. PT-Balance Assessment Sitting Balance and Reactions Static Sitting Balance Ability Normal Dynamic Sitting Balance Ability Normal Standing Balance and Reactions Static Standing Balance Ability Good Dynamic Standing Balance Ability Good Device Used FWW M5 PT-IP Objective Assessments Start: 03/29/21 08:37 Freq: NEEDED Status: Active Protocol: Document 03/29/21 10:14 AW (Rec: 03/29/21 11:59 AW [id number]) Orientation Orientation/Cognition Level of Alertness Alert Orientation Name,Day of Week,Place, Situation Language Function Ability No Deficits Noted Safety Awareness Understands Safety Issues Memory Description No Deficits Noted Gross Range of Motion Lower Extremity ROM Assessment Right Impaired Strength Lower Extremity Strength Assessment Right Impaired Hip 4/5 Knee 3-/5 Ankle 4+/5 Comments Strength Comments LLE grossly 4+/5 Sensation Assessment Sensation Gross Sensation WNL M6 PT-IP Treatment Start: 03/29/21 08:37 Freq: NEEDED Status: Active Protocol: Document 03/29/21 10:14 AW (Rec: 03/29/21 11:59 AW [id number]) Physical Therapy Treatment Exercises Exercises Ankle Pumps,Heel Slides, Passive Knee Extension Hang, Seated Knee Flexion/Extension Education Education Provided Weight Bearing Status,Post-Op Packet,Safety Other Treatments Other Treatment Performed Educated pt on PT plan of care , weightbearing status, safe use of FWW, and ther ex with ROM focus. M7 PT-IP Assessment and Plan Start: 03/29/21 08:37 Freq: NEEDED Status: Active Protocol: Document 03/29/21 10:14 AW (Rec: 03/29/21 11:59 AW [id number]) PT Summary Assessment and Plan Potential Rehabilitation Potential Good Status of Condition at Evaluation Evolving Summary Impairments Pain,ROM,Strength,Balance,Bed Mobility,Transfers,Gait Assessment Summary Abdoulaye is a 56 yo man seen for PT evaluation on POD1 following R TKA. He has history of back and knee pain. He uses forearm crutches occasionally and admits he has been using them more frequently recently due to increased pain. He is otherwise independent. On assessment, pt required no more than SBA for mobility with FWW. Gait was significantly antalgic. Pt is motivated to discharge today and has equipment and assist at home. Outpatient PT is already scheduled. Pt is safe to discharge home with assist and outpatient PT once medically stable. Frequency of Treatment Frequency Of Treatment Discharge Weight Bearing Status Weight Bearing Status Weight Bear as Tolerated Allowed Weight Bearing Amount (enter % WBAT RLE or #) (%) Recommendations To Nursing Amount of Assist Needed Standby Assistance Discharge Recommendations PT Discharge Recommendations Home with Assistance, Outpatient PT Transportation Needs at Discharge Private Vehicle
[2021-03-29] MEDS: NAPROXEN 250 MG TABLET 500 MG PO (11:33)
[2021-03-29] MEDS: hydrOXYzine pamoate 25 MG CAPSULE PO (11:33)
--- NOTE | 2021-03-29 11:41 | CM.DANOTE ---
Case received, EMR reviewed and met with patient. Introduced self and role. Was able to obtain information regarding patient's baseline activity status prior to surgery. DCP assessment completed with information currently available. Patient is a 56 year old male who admitted yesterday morning to the care of the orthopedic team. PCP: Dr. Carmel Vick, at the [facility]. Payer: confirmed: [facility]. Patient came to the hospital via private vehicle for a surgical procedure. He had a right total knee replacement. Patient had history of osteoarthritis of his right knee. Met with patient in his room. He is alert and oriented. He was sitting up in his chair. Patient resides in [facility] alone. He has a history of prior surgeries, and is seen at the [facility] for [facility]. He has had prior neck and back surgeries and uses crutches at home. He indicated that he goes to the [facility] in [place], but may be changing over to the [facility]. He lives alone, stated that he has been able to drive. His mother, Mirza Harrington will be staying with patient while he recovers. P: Patient has discharge orders for today, he will be working with the therapy team. Caroline Goins RN/Music Department Chair Discharge Planning/Care Management CM Discharge Assessment Start: 03/29/21 11:39 Freq: Status: Active Protocol: Document 03/29/21 11:40 (Rec: 03/29/21 11:41 [id number]) Discharge Planning Assessment Assigned Zipper Sewing Machine Operator Caroline Goins RN/Music Department Chair Advance Directives? No Advance Directives on File No History Provided By Patient,Medical Record Prior Living Arrangements House Household Members none Type of transporation used prior to Drives own vehicle admit Independent with ADL's Yes Is patient alert and oriented? Yes Caregiver for Another No DME Already Rented / Owned Crutches Patient/Family Preference OP PT Therapy Comment Patient indicated that he would be going in the [facility]. Barriers to Discharge No Discharge Plan Home Transportation Arrangement Family Referrals Initiated None needed Whiteboard Updated in Patient Room with Yes name and ext. # of Zipper Sewing Machine Operator Review Status In Process Next Review Type Continued Stay Review Pre-Anesthesia Assessment Start: 03/21/21 08:47 Freq: Status: Active Protocol: Document 03/21/21 08:47 CAB (Rec: 03/21/21 09:22 CAB [id number]) Pre-Anesthesia Assessment Preferred Name Ilir Cueva Patient Information Reviewed Via Phone Assessment Assessment Completed With Patient H&P Completed Within 30 Days Yes Diagnostic Results BMP/CMP,CBC,EKG Comment Outside labs/EKG scanned, COVID screen @ [facility] 03/25/21 Primary Care Provider Andrez/PETAR Seen Specialist in Last 12 Months Yes Specialist Seen Orthopedist Primary Language Senegalese Preferred Language Senegalese Manager Analytical Required No Height 5 ft 9 in Weight 227 lb Body Mass Index (BMI) 33.5 Hearing Ability Normal Visual Assist Magnifying Glass Dentition Type Teeth, Natural Present Barriers to Learning None Hx Anesthesia Reactions Yes: Woke up during shoulder surgery w/saw hitting my bone Hx Family Anesthesia Reaction No Hx Malignant Hyperthermia No Hx Blood Transfusions No Anesthesia Review Requested No Car Pre Cooler No alcohol intake current alcohol intake frequency holidays/special occasions only Smoking Status Former smoker Tobacco type smokeless tobacco how long ago did patient quit smoking Quit smoking 1999 Substance Use Type other Comment CBD topical Pain Present Pain Reported Musculoskeletal Symptoms Abnormal Gait,Back Pain, Difficulty Walking,Joint Pain History of Falling (Recent or History of Yes ) Patient is completely paralyzed or No completely immobile Prosthesis or Orthotic Device Crutches Mental Status Oriented to own ability Is patient on oxygen? No Does patient have BEAN/SOB Yes: r/t Asthma, rare Hx Sleep Apnea No CPAP/BIPAP use not prescribed Currently Taking a Beta Cecilia No Can You Climb a Flight of Stairs Without Yes SOB Hx Chest Pain No Hx SOB Yes: r/t Asthma, rare Hx Syncope or Dizziness No Anti-Coagulant Therapy No Has a Grease And Tallow Pumper No Cardiac Testing No Hx Pacemaker/ICD No Pacemaker Rep Required? No Cardiac Clearance Received Not Applicable Diet Type At Home Regular,Low Carb Gastrointestinal Symptoms Reflux Genitourinary Symptoms Change in Urinary Stream Urinary Catheter Present No Hx Urinary Self Catheterization No Diabetes No HgbA1C 5.6 Date 03/08/21 Hx Drug Resistant Organism No Presence of External or Internal Medical Yes: Left Knee Devices Received a COVID vaccine? Yes: J&J Marital Status Lives With none Prior Living Arrangements House Support System Parent(s) Does the Patient Have Assistance After Yes: Mom will stay w/pt to Surgery assist with care at [facility] Patient Discharge Plan Description Return Home Comment Pt advised overnight length of stay per surgeon Feels Safe in Current Environment Yes Been Physically Hurt or Threatened By a No Person in Current Environment Do you have thoughts of harming yourself None or others? Are you currently considering suicide? No Do you have a plan to hurt yourself or No Plan others? Do You Have Any Spiritual Beliefs That No May Affect Your HC Choices? Do You Have Any Cultural Practices That No May Affect Your HC Choices? Comment Yarsanism Who Can We Speak to About Patient's Care Family, friends Identifying Code for Release of Patient Declines to issue Information Health Care Proxy/Next of Kin Caitlin Harrington (Mom), Dc (brother) Health Care Proxy Phone Number Caitlin: [phone] Dc : [phone] Emergency Contact Name Caitlin Harrington (Mom), Dc (brother) Emergency Contact Phone Number Caitlin: [phone] Dc : [phone] Advance Directives? No Advance Directives on File No Power of Manager Imaging No PAC Instructions Durable medical equipment, Medications to take/avoid, Nasal antibiotic,No ETOH/ petroleum product on skin DOS, NPO,Post-op transportation,Pre -surgical wash,Sturdy shoes/ comfortable clothes,Do not bring valuables and remove jewelry
--- NOTE | 2021-03-29 15:51 | PC.NURSE ---
Discharge: Feels ready to d/c to home. PT has seen pt and cleared him for d/c. Seen by the PA and given d/c instructions. Tolerates diet w/out problems. Vds w/out diff. Po pain meds have been effective for pain. Aquacel under sophy wrap is c/d/i. Rx has been esent. Reviewed discharge instructions. Questions answered. Pt d/c to home via auto.
== END 2021-03-29 13:30 | disposition home or self-care (01) ==
LOC: OR 11:23 → AC 11:23
PROVIDERS: Referring Provider Orthopaedic Surgery; Visit Provider Orthopaedic Surgery
PROC: 0SRC0JZ Replacement of Right Knee Joint with Synthetic Substitute, Open Approach (ICD-10-PCS; CPT 27447; principal; 2021-03-28 12:45)
DX: M17.11 Unilateral primary osteoarthritis, right knee (principal); J45.909 Unspecified asthma, uncomplicated; K21.9 Gastro-esophageal reflux disease without esophagitis; I10 Essential (primary) hypertension; F41.9 Anxiety disorder, unspecified; F32.9 Major depressive disorder, single episode, unspecified; F43.10 Post-traumatic stress disorder, unspecified
CPT/HCPCS: 27447; 36415; 73560; 85014; 85018; 94760; 97116; 97162; C1776; C9290; J0171; J0690; J1100; J1170; J2250; J2270; J2405; J2704; J3010

== ENCOUNTER 2022-06-23 13:49 | Observation (INO) | payer OTHER, SELFPAY ==
[2021-03-28 17:17] VITALS: BMI 34.0
[2022-06-12 13:47] VITALS: BMI 32.6
[2022-06-22] VITALS (14 sets, daily range): BP systolic 94–137; BP diastolic 57–80; PULSE 62–86; RESP 11–20; TEMP 36.1–37.2; O2SAT 92–99; BMI 32.6
[2022-06-22] MEDS: CELECOXIB 200 MG CAPSULE PO (09:32)
[2022-06-22] MEDS: PREGABALIN 75 MG CAPSULE PO (09:32)
[2022-06-22] MEDS: ACETAMINOPHEN 325 MG TABLET 975 MG PO (09:33)
[2022-06-22] MEDS: VANCOMYCIN 1,000 MG/200 ML PIGGYBACK 200 MG IV (09:39)
[2022-06-22 09:48] LABS: COVID19 -Nasal RAPID Negative (Negative)
--- NOTE | 2022-06-22 10:14 | PM.PREOP ---
Pre-operative Note COVID-19 COVID-19 status: Negative Interval Note History & Physical reviewed/Exam performed by Physician: Yes Changes to H&P: No
--- NOTE | 2022-06-22 10:14 | PM.OP.1 ---
Operative Date/Time/Diagnoses Date of procedure: 06/22/22 Time of procedure: 11:20 Pre-op diagnosis: Severe left hip OA Post-op diagnosis: same Procedure & Clinicians Procedure: Left total hip arthroplasty posterior approach Same procedure as scheduled: Yes Indications: The patient has had progressively worsening left hip pain with radiographic changes consistent with arthritis. Non-operative management has failed and the patient has requested total hip replacement. The risks, benefits and alternatives to surgery were discussed with the patient prior to proceeding. Risks discussed included, but were not limited to, failure to relieve pain, leg length discrepancy, dislocation, stiffness, infection, nerve damage, deep venous thrombosis, pulmonary embolism, stroke, coma, heart attack, permanent paralysis and , as well as the potential need for eventual revision of the prosthetic. Surgeon: Sarah Alfaro Rapier Insertion Loom Fixer: Madonna Marrero Anesthesia Type: General and Spinal Operative Notes Findings: Severe left hip OA, adequate bone and stability Closure Type: primary Specimen(s): none sent Prosthetic devices, grafts, tissues, transplants, or devices: Alfaro and nephew anthology A fit standard offset size 9, 56 mm R3 cup, neutral poly liner, one 6.5 mm screw, 36 by +0 Oxinium head Estimated Blood Loss (mL): 250 Blood products transfused: none Procedure in detail: The patient was seen in the pre-operative area, where the patient identified the left hip as the operative site and this was marked with my initials. The patient received pre-operative antibiotics and was taken to the operating room and placed on the operative table in the right lateral decubitus position after satisfactory anesthesia. A time signal wirer out was performed. The left leg was prepared from the ankle to the iliac crest with ChloroPrep in the usual fashion and draped through sterile drapes. The hip was approached through an approximately 20 cm incision centered over the greater trochanter and curving gently posteriorly as it went proximally. This was carried sharply to the fascia kelechi, which was divided and retracted with a self retaining retractor. The trochanteric bursa was excised with care being taken to avoid the sciatic nerve, which was identified and protected throughout the case. The short external rotators were incised and the capsulomuscular flap was raised and tagged for later repair. The hip was dislocated, and a femoral neck osteotomy performed approximately 15 mm above the lesser trochanter. Retractors were placed around the femur. The canal was opened with a box cutting osteotome, followed by a T handled reamer and a lateralizing reamer. The chili pepper broach was then used, followed by sequential broaching until there was good stability of the broach in the femur. Retractors were placed to expose the acetabulum. The labrum and central soft tissues were removed. Reaming was performed initially going up in 2 mm increments, then 1 mm increments until good bite was obtained with an odd sized reamer. The cup 1 mm larger than the last reamer was then inserted using the appropriate anteversion guides. It was further stabilized with a single screw. A trial neutral liner was placed. The broach was placed in the canal. A trial head and neck were then placed and the hip relocated and checked for leg length and stability. An intraoperative film confirmed the component position and no evidence of fracture. The patient was stable in the position of sleep, of squatting, and could be put through a range of motion with 45 degrees internal rotation without dislocation. At 90 degrees flexion, internal rotation to 70? was possible before dislocation. This was felt to be satisfactory and the appropriate components were opened, and the trials were removed. The acetabular liner was impacted into position. The final stem was then impacted into the prepared femoral canal. A brief Betadine soak was performed while trialing with head options. The hip was meticulously irrigated with normal saline. Finally the femoral head was impacted onto the stem. The acetabulum was cleared of all material and the hip relocated one final time. The capsulomuscular flap was then repaired to the greater trochanter though an awl hole using the tag sutures. The short external rotators were repaired with a nonabsorbable suture. A deep drain was placed and brought out anteriorly. The fascia kelechi was closed with Vicryl. The subcutaneous layer was closed with barbed sutures and surgical glue. An Aquacel Ag dressing was applied and the patient was taken to recovery having tolerated the procedure well. Complications: none Post-operative Condition: stable Disposition: Acute Care Plan for aftercare: The patient will be maintained on a standard total hip replacement protocol with weight bearing as tolerated and posterior hip precautions. The patient will receive Aspirin and sequential compression devices for DVT prophylaxis. The patient will be discharged home when safe for the home environment.
[2022-06-22] MEDS: TRANEXAMIC ACID 1,000 MG VIAL 1000 MG INJ (11:01)
[2022-06-22] MEDS: CEFAZOLIN 2 GM/100 ML PREMIX 100 ML IV ×2 (11:01→18:13)
--- NOTE | 2022-06-22 11:31 | SUR.OPER ---
Lateral on a bed hip pyroglazer used to secure body, head on pillow, gel axillary roll in place, bottom leg bent with gel pad under knee to foot, covered and secured with tape. Upper leg secured by surgeon. Upper arm supported by pillows and secured over bottom arm to padded arm board.
[2022-06-22] MEDS: BUPIVACAINE LIPOSOME 266 MG/20 ML VIAL INJ (11:36)
[2022-06-22] MEDS: BUPIVACAINE 0.5% W/ EPI (PF) 30 ML VIAL INJ (11:37)
[2022-06-22] MEDS: SODIUM CHLORIDE IRRIG SOLUTION 250 ML, EPINEPHrine 1 MG IRR (11:42)
[2022-06-22] MEDS: LACTATED RINGERS 1,000 ML 42 ML IV (11:45)
--- NOTE | 2022-06-22 12:00 | DI.RAD.S_ITS ---
PROCEDURE: XR PELVIS 1-2V INDICATIONS: prosthesis placement TECHNIQUE: Intra-operative view of the pelvis and hip acquired. COMPARISON: None. FINDINGS: Bones: Intraoperative devices prior to placement of arthroplasty prostheses are in expected positions. No fractures or suspicious bony lesions. Soft tissues: Overlying surgical retractors are present, along with other intraoperative changes. IMPRESSION: Left total hip intraoperative arthroplasty film Approved by: Blaise Newman M.D. on 06/22/2022 at 16:52
--- NOTE | 2022-06-22 13:00 | DI.RAD.S_ITS ---
PROCEDURE: XR HIP W PEL IF DONE LT 2V INDICATIONS: LEFT TOTAL HIP TECHNIQUE: 2 view(s) of the hip acquired. COMPARISON: None. FINDINGS: Bones: Patient is status post left hip arthroplasty, with hardware components in expected positions. The hip joint appears congruent. The visualized bony structures appear intact. Moderate right hip joint space narrowing Soft tissues: Overlying postoperative changes are noted. No suspicious soft tissue densities. IMPRESSION: Total left hip arthroplasty in good position. No fracture. Approved by: Blaise Newman M.D. on 06/22/2022 at 16:54
[2022-06-22] MEDS: LACTATED RINGERS 1,000 ML 125 ML IV ×2 (14:34→23:07)
[2022-06-22] MEDS: OXYCODONE IR 5 MG TABLET PO ×2 (14:34→17:21)
[2022-06-22] MEDS: ACETAMINOPHEN 325 MG TABLET 650 MG PO ×2 (17:23→23:58)
[2022-06-22] MEDS: IBUPROFEN 400 MG TABLET PO ×2 (17:24→23:59)
[2022-06-22] MEDS: OXYCODONE IR 10 MG TABLET PO (19:51)
[2022-06-22] MEDS: DOCUSATE 100 MG CAPSULE PO (20:05)
[2022-06-22] MEDS: ASPIRIN EC 81 MG TABLET PO (20:05)
[2022-06-23] VITALS (7 sets, daily range): BP systolic 104–150; BP diastolic 60–90; PULSE 85–118; RESP 17–19; TEMP 36.7–37.5; O2SAT 95–97
[2022-06-23] MEDS: CEFAZOLIN 2 GM/100 ML PREMIX 100 ML IV (02:24)
[2022-06-23] MEDS: OXYCODONE IR 5 MG TABLET PO ×4 (05:04→14:21)
[2022-06-23] MEDS: IBUPROFEN 400 MG TABLET PO ×4 (05:04→23:53)
[2022-06-23] MEDS: ACETAMINOPHEN 325 MG TABLET 650 MG PO ×4 (05:05→23:52)
[2022-06-23 05:07] LABS: Hematocrit 36.9 % (41-53); Hemoglobin 12.4 g/dL (13.5-17.5)
--- NOTE | 2022-06-23 08:52 | PM.DS.1 ---
History of Present Illness History of Present Illness Date Patient Seen: 06/23/22 Time Patient Seen: 08:52 Chief complaint: left PARMINDER Narrative: Patient is sitting up in bed this morning, states he is doing well. Does note that this hip replacement is more painful than when he got his knee replacement. He has not been up with physical therapy yet but is looking forward to doing so. He is urinating without difficulty using bedside urinal. Would like to go home today if safe and cleared by physical therapy. He has a few steps to get into his house, lives on single level. Discharge Providers Provider Discharge Date: 06/23/22 Consults: 06/12/22 15:25 Consult to Anesthesiology Routine Comment: Consulting Provider: Anesthesiologist Reason for consultation: Surgeon ENOC requesteed re: Cardiac event 202006/22/22 06:00 Consult to Anesthesiology Routine Comment: Consulting Provider: Anesthesiologist Reason for consultation: Regional block for post operative pain control 06/22/22 14:09 Consult to Discharge Planning Routine Comment: Consult to Physical Therapy Evaluate & Treat Comment: Physician Instructions: post op PARMINDER protocol Discharge provider: Koki Bolivar PA-C Summary Hospital Course Discharge Diagnosis: Status post left PARMINDER Hospital Course: Operative Date/Time/Diagnoses Date of procedure: 06/22/22 Time of procedure: 11:20 Pre-op diagnosis: Severe left hip OA Post-op diagnosis: same Procedure & Clinicians Procedure: Left total hip arthroplasty posterior approach Same procedure as scheduled: Yes Indications: The patient has had progressively worsening left hip pain with radiographic changes consistent with arthritis. Non-operative management has failed and the patient has requested total hip replacement. The risks, benefits and alternatives to surgery were discussed with the patient prior to proceeding. Risks discussed included, but were not limited to, failure to relieve pain, leg length discrepancy, dislocation, stiffness, infection, nerve damage, deep venous thrombosis, pulmonary embolism, stroke, coma, heart attack, permanent paralysis and , as well as the potential need for eventual revision of the prosthetic. Surgeon: Sarah Alfaro Head Kiln Operator: Madonna Marrero Anesthesia Type: General and Spinal Operative Notes Findings: Severe left hip OA, adequate bone and stability Closure Type: primary Specimen(s): none sent Prosthetic devices, grafts, tissues, transplants, or devices: Alfaro and nephew anthology A fit standard offset size 9, 56 mm R3 cup, neutral poly liner, one 6.5 mm screw, 36 by +0 Oxinium head Estimated Blood Loss (mL): 250 Blood products transfused: none Status at Discharge Cognitive/behavioral status at discharge: oriented Overall status at discharge: patient is progressing back to baseline Exam Vital Signs (past 8 hours): - 06/23/22 03:29 Temperature 98.3 F Pulse Rate 97 H Respiratory Rate 18 Blood Pressure 150/90 H Pulse Oximetry 96 Oxygen Flow Rate 0 Oxygen Delivery Method Room Air Oxygen Flow Rate 0 Narrative Exam Narrative: Awake, alert, and oriented. Strength and sensation intact to bilateral lower extremities. Bilateral calf soft, compressible, nontender with no palpable cords or masses. Left hip intraoperative dressing clean, dry, and intact. Objective Labs 06/23/22 04:46 Labs: Laboratory Results - last 24 hr 06/22/22 06/23/22 09:10 04:46 Hgb 12.4 L Hct 36.9 L SARS-CoV-2 (PCR) Negative [facility] Medical History Asthma Cervical spinal cord injury COVID-19 virus infection (03/2022) Depression Dupuytren's contracture of both hands Finger amputation, traumatic GERD (gastroesophageal reflux disease) HTN (hypertension) Lumbar spinal cord injury PTSD (post-traumatic stress disorder) Spinal stenosis Surgical History History of shoulder surgery History of total left knee replacement (12/05/17) History of total right knee replacement (03/28/21) Hx of arthroscopy of left knee Hx of repair of left rotator cuff Hx of tonsillectomy [place] teeth extracted Social History household members: family Smoking Status: Former smoker alcohol intake: current Discharge Assessment & Plan Assessment and Plan Assessment: Patient progressing as expected after left total hip arthroplasty. Plan of Treatment: Plan for discharge to home after cleared by physical therapy today. Patient may shower, leave dressing intact until 2 week follow-up visit with Orthopedics. If dressing gets wet, patient could should contact our office for dressing change. Continue with physical therapy as outpatient. Patient received postoperative medications preoperative appointment, was counseled on these medications today. Discharge Plan Discharge Plan Patient Disposition: Home Provider Discharge Comment: Discharge once cleared by Physical therapy Discharge orders & Medications Discharge Orders: Discharge (Order); Ordered 06/23/22 Ordered By: Koki Bolivar Prescriptions: Continued lisinopril 5 mg Tablet 5 mg PO DAILY oxycodone 5 mg Tablet 5 mg PO Q4H PRN (Reason: Pain, Moderate (4-6)) Qty: 40 0RF lidocaine 4 % Cream 1 applic TOPICAL QID PRN (Reason: pain) omeprazole 40 mg Capsule,Delayed Release(Dr/Ec) 40 mg PO DAILY PRN (Reason: gerd) fluoxetine 10 mg Capsule 10 mg PO DAILY albuterol sulfate 90 mcg/actuation Hfa Aerosol Inhaler 2 puff INHALATION Q4-6H PRN (Reason: Asthma) ibuprofen 200 mg Capsule 400 mg PO BID Follow up/Referrals: Sarah Alfaro MD [Physician] - As previously scheduled Diet/Activity/Treatments Diet: Diet as Tolerated Activity: Up and walking as tolerated. Posterior hip precautions. Continue physical therapy. Cold/Heat Therapy: Ice as needed Skin/Wound/Dressing Care Report to your healthcare provider any signs of infection, such as:: chills, fever, night sweats, increased pain, unusual drainage and unusual redness Dressing: Leave dressing clean, dry, and intact until 2 week postoperative appointment Visit Report/Discharge Packet Instructions: DI for Hip Replacement Stand Alone Forms: Patient Portal/API, Stroke Signs & Symptoms, Surgery Discharge Discharge Data Attending Provider: Sarah Alfaro Quality VTE Deep Vein Thrombosis/Pulmonary Embolism Present on Admission: No
[2022-06-23] MEDS: lisinopriL 5 MG TABLET PO (09:31)
[2022-06-23] MEDS: ASPIRIN EC 81 MG TABLET PO ×2 (09:31→20:51)
[2022-06-23] MEDS: FLUoxetine 10 MG CAPSULE PO (09:31)
[2022-06-23] MEDS: DOCUSATE 100 MG CAPSULE PO ×2 (09:31→20:51)
--- NOTE | 2022-06-23 09:40 | PT.IIE ---
Current Diagnoses Unilateral primary osteoarthritis, left hip (06/22/22) Surgery Performed Operation Date: 06/22/22 10:45 Actual Procedures p Total Hip Arthroplasty(Left) - Sarah Alfaro MD Surgical History (Last Reviewed 06/23/22 @ 08:57 by Koki Bolivar PA-C) History of shoulder surgery History of total left knee replacement (12/05/17) History of total right knee replacement (03/28/21) Hx of arthroscopy of left knee Hx of repair of left rotator cuff Hx of tonsillectomy [place] teeth extracted Medical History (Last Reviewed 06/23/22 @ 08:57 by Koki Bolivar PA-C) Asthma Cervical spinal cord injury COVID-19 virus infection (03/2022) Depression Dupuytren's contracture of both hands Finger amputation, traumatic GERD (gastroesophageal reflux disease) HTN (hypertension) Lumbar spinal cord injury PTSD (post-traumatic stress disorder) Spinal stenosis Physical Therapy Inpatient Evaluation/Re-Eval M1 PT/OT-IP Prior Functional Status Start: 06/23/22 12:58 Freq: NEEDED Status: Active Protocol: Document 06/23/22 09:40 AB (Rec: 06/23/22 13:13 AB [email or web address]) Medical Review Prior Functional Status Medical History Reviewed Yes Communication able to make needs known Mobility and Gait pt stated that he is modified independent with all mobilities and ambulation using 2 forearm crutches Social History Household Members none Living Arrangements House Number of Floors (Floors) One Floor Number of Stairs To Enter/Railing? 4 platform steps to enter without rails Home Environment Walk in Shower Home Equipment Front Wheel Walker,Crutches, Raised Toilet Seat w/Armrests, Hand Held Shower,Grab Bars In Shower Additional Social History Comment pt stated that his GF will stay with him to assist pt has forearm crutches M2 PT-IP Current Condition Start: 06/23/22 12:58 Freq: NEEDED Status: Active Protocol: Document 06/23/22 09:40 AB (Rec: 06/23/22 13:13 AB [email or web address]) Physical Therapy Current Condition Current Condition Evaluation Date 06/23/22 Treatment Diagnosis s/p L PARMINDER posterior approach; difficulty in walking Onset Date 06/22/22 M3 PT-IP Subjective Start: 06/23/22 12:58 Freq: NEEDED Status: Active Protocol: Document 06/23/22 09:40 AB (Rec: 06/23/22 13:13 AB [email or web address]) Subjective Physical Therapy Visit Type Type Initial Evaluation Visit Start Time 09:40 Visit Stop Time 10:31 Total Visit Minutes 51 Number of PHARMACEUTICAL SCIENTIST Visits 0 Physical Therapy Visit Comments Patient Comments agreeable to do PT Therapy Pain Assessment Pain When Pain Assessed During Weight Bearing Location Left Hip Intensity 10 Scale Used Numeric (0 - 10) Pain Management Techniques Apply Cold,Distraction, Modification of Treatment,Re- positioning,Timing of Activity with Medications M4 PT-IP Mobility and Gait Start: 06/23/22 12:58 Freq: NEEDED Status: Active Protocol: Document 06/23/22 09:40 AB (Rec: 06/23/22 13:13 AB [email or web address]) PT-Bed Mobility Assessment Supine to Sit Supine to Sit Moderate Assistance PT-Transfer Assessment Sit to and From Stand Sit to and from Stand Maximum Assistance,1 Person Assistance,Use of Upper Extremities Equipment Transfer Assistive Device Gait Belt,Front Wheeled Walker Orthotic/Prosthetic Devices or Brace: No Transfers Transfer Destination Chair Transfer Ability Level of Assist Moderate Assistance,Maximum Assistance,1 Person Assistance ,Use of Upper Extremities Comments Mobility Comments educated pt on posterior hip precautions. pt requires cues to recall. completed supine to sit mod A and max cues. pt requires increase time to complete task and c/o increase hip pain. completed sit to stand max A and max cues x 2 attempts. ambulated in room ~ 3 ft using FWW and sat on the chair. unable to ambulate farther with c/o increase hip pain. pt with heavy UE use on FWW for support and requires cues to put weight on LLE and for quads activation. pt stated that he felt a pop on his hip during movement. informed nurse. positioned pt on the chair. call light and table placed within reach. Gait Assessment Gait Gait Assistance Required: Moderate Assistance,Maximum Assistance,1 Person Assist Distance (Feet) 3 Able to Maintain Weight Bearing Status No During Gait Assistive Devices Assistive Device Gait Belt,Front Wheeled Walker Orthotic/Prosthetic Devices or Brace: No Gait Deviations General Gait Pattern Antalgic,Decreased Stride Length,Decreased Feet Clearance,Step-to Gait Factors Limiting Gait Function Factors Limiting Gait Function Decreased Activity Tolerance, Decreased Strength,Difficulty Following Directions,Limited Range of Motion,Pain,Poor Balance,Poor Safety Awareness PT-Balance Assessment Sitting Balance and Reactions Static Sitting Balance Ability Good Dynamic Sitting Balance Ability Fair Standing Balance and Reactions Static Standing Balance Ability Poor Dynamic Standing Balance Ability Poor Device Used FWW M5 PT-IP Objective Assessments Start: 06/23/22 12:58 Freq: NEEDED Status: Active Protocol: Document 06/23/22 09:40 AB (Rec: 06/23/22 13:13 AB [email or web address]) Orientation Orientation/Cognition Level of Alertness Alert Orientation Name,Place,Situation Language Function Ability No Deficits Noted Safety Awareness Decreased Safety Awareness Memory Description Short Term Impaired Gross Range of Motion Lower Extremity ROM Assessment Within Functional Limits Strength Lower Extremity Strength Assessment Left Impaired Muscle Tone Muscle Tone WNL Yes M6 PT-IP Treatment Start: 06/23/22 12:58 Freq: NEEDED Status: Active Protocol: Document 06/23/22 09:40 AB (Rec: 06/23/22 13:13 AB [email or web address]) Physical Therapy Treatment Education Education Provided Precautions,Weight Bearing Status,Post-Op Packet,Safety M7 PT-IP Assessment and Plan Start: 06/23/22 12:58 Freq: NEEDED Status: Active Protocol: Document 06/23/22 09:40 AB (Rec: 06/23/22 13:13 AB [email or web address]) PT Summary Assessment and Plan Potential Rehabilitation Potential Fair Status of Condition at Evaluation Evolving Summary Impairments Pain,ROM,Strength,Balance, Coordination,Sensation,Tone, Cognition,Bed Mobility, Transfers,Gait,Activity Tolerance Assessment Summary pt requiring mod to max A with mobility and unable to ambulate much today with c/o increas hip pain. pt wanting to go home today but is not safe to go home as of this morning. will continue to assess progress. caregiver training will be conducted and stair climbing training when appropriate. Goals Bed Mobility Goal Standby Assistance Transfer Goal Standby Assistance,Front Wheeled Walker Gait Goal Standby Assistance,Front Wheel Walker Gait Distance 150 Other Goals up/down 4 platform steps uisng FWW SBA Days to Meet Goals 5 Frequency of Treatment Frequency Of Treatment Twice a Day Treatment Plan Physical Therapy Treatment Plan Bed Mobility Training,Transfer Training,Gait Training, Therapeutic Exercise,Balance Retraining,Post Op Education, Discharge Planning,Hot or Cold Pack,Neuromuscular Re-ed, Coordination Retraining,Manual Therapy Precautions Posterior Hip Precautions No Hip Flexion > 90 degrees,No Hip Internal Rotation,No Hip Adduction Weight Bearing Status Weight Bearing Status Weight Bear as Tolerated Allowed Weight Bearing Amount (enter % LLE WBAT or #) (%) Recommendations To Nursing Amount of Assist Needed 1 Person Assist Discharge Recommendations PT Discharge Recommendations Home with 04/12 Assist Available,Home Health,SNF Rehab,Home vs SNF Transportation Needs at Discharge Private Vehicle,Wheelchair/ Cabulance
[2022-06-23] MEDS: OXYCODONE IR 10 MG TABLET PO ×2 (10:42→20:50)
--- NOTE | 2022-06-23 10:59 | PC.NURSE ---
Pt up for first time with PT and reports her felt a pop in his Left hip and felt 10/10 pain. His pain has decreased since then to 6-7/10. Paged Dr. Blas to report. Waiting for return call.
--- NOTE | 2022-06-23 11:00 | CM.DANOTE ---
Initial DCP Assessment Note Pt is a 57 yo male, resident of [place], now POD#1 from left PARMINDER by Dr Alfaro PCP: Paolo Payer: [facility] Reviewed chart, pt discussed in multidisciplinary rounds this morning. DC order from Ortho has already been initiated this morning, pending clearance from therapies for planned discharge home w/family to assist No barriers identified at this time to patient's safe discharge home w/family to assist; close outpatient f/u recommended. CM team will follow closely in case any DC needs or concerns arise CHRISTA Echavarria Discharge Planning/Care Management CM Discharge Assessment Start: 06/23/22 09:31 Freq: Status: Active Protocol: Document 06/23/22 09:31 EMI (Rec: 06/23/22 09:41 [id number]) Discharge Planning Assessment Assigned Sap Senior Developer CHRISTA Marx DPOA/Assigned Designee Name Caitlin: [phone] Dc : [phone] Contact Information Caitlin Harrington (Mom), Dc (brother) Advance Directives? No Advance Directives on File No History Provided By Patient,Medical Record Prior Living Arrangements House Household Members family Type of transporation used prior to Drives own vehicle admit Independent with ADL's Yes Is patient alert and oriented? Yes Patient/Family Preference OP PT Therapy Barriers to Discharge No Discharge Plan Home Transportation Arrangement Family Referrals Initiated None needed
--- NOTE | 2022-06-23 11:14 | DI.RAD.S_ITS ---
PROCEDURE: XR HIP W PEL IF DONE LT 2V INDICATIONS: s/p PARMINDER, poss dislocation TECHNIQUE: Two views of the hip were acquired. COMPARISON: [facility], MARIELENA, XR HIP W PEL IF DONE LT 2V, 06/22/2022, 12:59. FINDINGS: Bones: Appropriate appearance of the left hip arthroplasty. Advanced right hip degenerative changes. Soft tissues: No suspicious calcifications. IMPRESSION: Expected appearance of the left hip arthroplasty. Advanced right hip degenerative changes. Dictated by: Bob Grimes M.D. on 06/23/2022 at 11:48 Approved by: Bob Grimes M.D. on 06/23/2022 at 11:49
--- NOTE | 2022-06-23 17:21 | PT.IPTN ---
Current Diagnoses Unilateral primary osteoarthritis, left hip (06/23/22) Surgery Performed Operation Date: 06/22/22 10:45 Actual Procedures p Total Hip Arthroplasty(Left) - Sarah Alfaro MD Physical Therapy Treatment Note M2 PT-IP Current Condition Start: 06/23/22 12:58 Freq: NEEDED Status: Active Protocol: Document 06/23/22 09:40 AB (Rec: 06/23/22 13:13 AB [email or web address]) Physical Therapy Current Condition Current Condition Evaluation Date 06/23/22 Treatment Diagnosis s/p L PARMINDER posterior approach; difficulty in walking Onset Date 06/22/22 M3 PT-IP Subjective Start: 06/23/22 12:58 Freq: NEEDED Status: Active Protocol: Document 06/23/22 17:05 SHONDA (Rec: 06/23/22 17:21 LJ [id number]) Subjective Physical Therapy Visit Type Type Treatment Note Visit Start Time 15:11 Visit Stop Time 15:31 Total Visit Minutes 20 Number of VACATION SALES ADVISOR Visits 1 Physical Therapy Visit Comments Patient Comments agreeable to do PT Therapy Pain Assessment Pain When Pain Assessed During Mobility Pain Present Pain Present Pain Reported Location Left Hip Pain Management Techniques Apply Cold,Distraction, Modification of Treatment,Re- positioning,Timing of Activity with Medications M4 PT-IP Mobility and Gait Start: 06/23/22 12:58 Freq: NEEDED Status: Active Protocol: Document 06/23/22 17:05 LJ (Rec: 06/23/22 17:21 LJ [id number]) PT-Bed Mobility Assessment Supine to Sit Supine to Sit Moderate Assistance PT-Transfer Assessment Sit to and From Stand Sit to and from Stand Contact Guard Assistance,1 Person Assistance,Use of Upper Extremities Equipment Transfer Assistive Device Gait Belt,Front Wheeled Walker Orthotic/Prosthetic Devices or Brace: No Transfers Transfer Destination Chair Transfer Ability Level of Assist Contact Guard Assistance,1 Person Assistance,Use of Upper Extremities Comments Mobility Comments Pt GF in room during tx. Pt needs cues to recall precautions. HOB elevated at pts request. ModA for pivot LEs off side of bed. CGA sit> stand. Ambulated to window and back to chair ~12'. Heavy lean on FWW with UEs. Pt not putting much weight onto LLE. Pt did not want to return to bed stating it was too hard and painful to get out of the bed. Pt given call light and ice positioned on hip. GF in room with pt. Gait Assessment Gait Gait Assistance Required: Contact Guard Assist,1 Person Assist Distance (Feet) 12 Able to Maintain Weight Bearing Status No During Gait Assistive Devices Assistive Device Gait Belt,Front Wheeled Walker Orthotic/Prosthetic Devices or Brace: No Gait Deviations General Gait Pattern Antalgic,Decreased Stride Length,Decreased Feet Clearance,Step-to Gait Factors Limiting Gait Function Factors Limiting Gait Function Decreased Activity Tolerance, Decreased Strength,Difficulty Following Directions,Limited Range of Motion,Pain,Poor Balance,Poor Safety Awareness M5 PT-IP Objective Assessments Start: 06/23/22 12:58 Freq: NEEDED Status: Active Protocol: Document 06/23/22 09:40 AB (Rec: 06/23/22 13:13 AB [email or web address]) Orientation Orientation/Cognition Level of Alertness Alert Orientation Name,Place,Situation Language Function Ability No Deficits Noted Safety Awareness Decreased Safety Awareness Memory Description Short Term Impaired Gross Range of Motion Lower Extremity ROM Assessment Within Functional Limits Strength Lower Extremity Strength Assessment Left Impaired Muscle Tone Muscle Tone WNL Yes M6 PT-IP Treatment Start: 06/23/22 12:58 Freq: NEEDED Status: Active Protocol: Document 06/23/22 17:05 LJ (Rec: 06/23/22 17:21 LJ [id number]) Physical Therapy Treatment Exercises Exercises Ankle Pumps,Quad Sets Education Education Provided Precautions,Weight Bearing Status,Safety M7 PT-IP Assessment and Plan Start: 06/23/22 12:58 Freq: NEEDED Status: Active Protocol: Document 06/23/22 17:05 LJ (Rec: 06/23/22 17:21 LJ [id number]) PT Summary Assessment and Plan Potential Rehabilitation Potential Fair Status of Condition at Evaluation Evolving Summary Impairments Pain,ROM,Strength,Balance, Coordination,Sensation,Tone, Cognition,Bed Mobility, Transfers,Gait,Activity Tolerance Assessment Summary Pt improved with gait distance however still not putting much weight at all into his LLE. Will need further bed mobility training to improve ability to get into and out of bed at home safely while adhering to precautions. Continue to assess progress. CGT and platform stair training when appropriate. Goals Bed Mobility Goal Standby Assistance Transfer Goal Standby Assistance,Front Wheeled Walker Gait Goal Standby Assistance,Front Wheel Walker Gait Distance 150 Other Goals up/down 4 platform steps uisng FWW SBA Days to Meet Goals 5 Treatment Plan Physical Therapy Treatment Plan Bed Mobility Training,Transfer Training,Gait Training, Therapeutic Exercise,Balance Retraining,Post Op Education, Discharge Planning,Hot or Cold Pack,Neuromuscular Re-ed, Coordination Retraining,Manual Therapy Precautions Posterior Hip Precautions No Hip Flexion > 90 degrees,No Hip Internal Rotation,No Hip Adduction Weight Bearing Status Weight Bearing Status Weight Bear as Tolerated Allowed Weight Bearing Amount (enter % LLE WBAT or #) (%) Recommendations To Nursing Amount of Assist Needed 1 Person Assist Discharge Recommendations PT Discharge Recommendations Home with 04/12 Assist Available,Home Health,SNF Rehab,Home vs SNF Transportation Needs at Discharge Private Vehicle,Wheelchair/ Cabulance
[2022-06-24] VITALS: BP 116/67; PULSE 96; RESP 18; TEMP 36.6; O2SAT 96
[2022-06-24 04:00] VITALS: BP 99/61; PULSE 82; RESP 20; TEMP 36.2; O2SAT 97
[2022-06-24] MEDS: ACETAMINOPHEN 325 MG TABLET 650 MG PO ×2 (06:26→11:42)
[2022-06-24] MEDS: IBUPROFEN 400 MG TABLET PO ×2 (06:26→11:42)
[2022-06-24 08:00] VITALS: BP 135/70; PULSE 89; RESP 17; TEMP 36.8; O2SAT 96
[2022-06-24] MEDS: OXYCODONE IR 10 MG TABLET PO ×3 (08:08→15:05)
[2022-06-24] MEDS: ASPIRIN EC 81 MG TABLET PO (08:08)
[2022-06-24] MEDS: lisinopriL 5 MG TABLET PO (08:08)
[2022-06-24] MEDS: FLUoxetine 10 MG CAPSULE PO (08:08)
[2022-06-24] MEDS: DOCUSATE 100 MG CAPSULE PO (08:09)
[2022-06-24 12:00] VITALS: BP 112/59; PULSE 85; RESP 17; TEMP 36.6; O2SAT 99
--- NOTE | 2022-06-24 12:02 | PT.IPTN ---
Current Diagnoses Unilateral primary osteoarthritis, left hip (06/23/22) Surgery Performed Operation Date: 06/22/22 10:45 Actual Procedures p Total Hip Arthroplasty(Left) - Sarah Alfaro MD Physical Therapy Treatment Note M2 PT-IP Current Condition Start: 06/23/22 12:58 Freq: NEEDED Status: Active Protocol: Document 06/23/22 09:40 AB (Rec: 06/23/22 13:13 AB [email or web address]) Physical Therapy Current Condition Current Condition Evaluation Date 06/23/22 Treatment Diagnosis s/p L PARMINDER posterior approach; difficulty in walking Onset Date 06/22/22 M3 PT-IP Subjective Start: 06/23/22 12:58 Freq: NEEDED Status: Active Protocol: Document 06/24/22 11:49 LJ (Rec: 06/24/22 12:02 LJ [id number]) Subjective Physical Therapy Visit Type Type Treatment Note Visit Start Time 09:15 Visit Stop Time 09:46 Total Visit Minutes 31 Number of ASSISTANT TO THE DIRECTOR Visits 2 Physical Therapy Visit Comments Patient Comments agreeable to do PT Therapy Pain Assessment Pain When Pain Assessed During Mobility Pain Present Pain Present Pain Reported M4 PT-IP Mobility and Gait Start: 06/23/22 12:58 Freq: NEEDED Status: Active Protocol: Document 06/24/22 11:49 LJ (Rec: 06/24/22 12:02 LJ [id number]) PT-Bed Mobility Assessment Supine to Sit Supine to Sit Standby Assistance PT-Transfer Assessment Sit to and From Stand Sit to and from Stand Contact Guard Assistance,1 Person Assistance,Use of Upper Extremities Equipment Transfer Assistive Device Gait Belt,Front Wheeled Walker ,Forearm Crutches Orthotic/Prosthetic Devices or Brace: No Transfers Transfer Destination Chair Transfer Ability Level of Assist Standby Assistance,Contact Guard Assistance,1 Person Assistance,Use of Upper Extremities Comments Mobility Comments Pt in bed upon arrival. SBA for supine>sit on EOB. Sit<> stand SBA with UEs with both FWW and forearm crutches. Uses UEs to lower self in chair. Gait Assessment Gait Gait Assistance Required: Standby Assistance Distance (Feet) 400 Assistive Devices Assistive Device Gait Belt,Front Wheeled Walker ,Forearm Crutches Orthotic/Prosthetic Devices or Brace: No Gait Deviations General Gait Pattern Antalgic,Decreased Stride Length,Decreased Feet Clearance Factors Limiting Gait Function Factors Limiting Gait Function Decreased Activity Tolerance, Decreased Strength,Limited Range of Motion,Pain,Poor Balance Comments Gait Comments Pt ambulated with FWW in room then switched to forearm crutches and decided he felt much more stable and could walk more safely with forearm crutches. Pt ambulated to stairs and practiced both platform step and stairs without difficulty. Pt ambulated back to room SBA. Sat in chair and given all needs within reach. PT-Balance Assessment Sitting Balance and Reactions Static Sitting Balance Ability Good Dynamic Sitting Balance Ability Good Standing Balance and Reactions Static Standing Balance Ability Fair Dynamic Standing Balance Ability Fair Device Used FWW forearm crutches M5 PT-IP Objective Assessments Start: 06/23/22 12:58 Freq: NEEDED Status: Active Protocol: Document 06/23/22 09:40 AB (Rec: 06/23/22 13:13 AB [email or web address]) Orientation Orientation/Cognition Level of Alertness Alert Orientation Name,Place,Situation Language Function Ability No Deficits Noted Safety Awareness Decreased Safety Awareness Memory Description Short Term Impaired Gross Range of Motion Lower Extremity ROM Assessment Within Functional Limits Strength Lower Extremity Strength Assessment Left Impaired Muscle Tone Muscle Tone WNL Yes M6 PT-IP Treatment Start: 06/23/22 12:58 Freq: NEEDED Status: Active Protocol: Document 06/24/22 11:49 LJ (Rec: 06/24/22 12:02 LJ [id number]) Physical Therapy Treatment Education Education Provided Precautions,Safety M7 PT-IP Assessment and Plan Start: 06/23/22 12:58 Freq: NEEDED Status: Active Protocol: Document 06/24/22 11:49 LJ (Rec: 06/24/22 12:02 LJ [id number]) PT Summary Assessment and Plan Potential Rehabilitation Potential Good Status of Condition at Evaluation Evolving Summary Impairments Pain,ROM,Strength,Balance, Coordination,Sensation,Tone, Bed Mobility,Transfers,Gait, Activity Tolerance Assessment Summary Pt SBA with all bed mobility, transfers, and gait including stairs and platform step. Will conduct CGT with GF this afternoon at 2:00 and is safe to DC home with assist. Goals Bed Mobility Goal Standby Assistance Transfer Goal Standby Assistance,Front Wheeled Walker Gait Goal Standby Assistance,Front Wheel Walker Gait Distance 150 Other Goals up/down 4 platform steps uisng FWW SBA Days to Meet Goals 5 Treatment Plan Physical Therapy Treatment Plan Bed Mobility Training,Transfer Training,Gait Training, Therapeutic Exercise,Balance Retraining,Post Op Education, Discharge Planning,Hot or Cold Pack,Neuromuscular Re-ed, Coordination Retraining,Manual Therapy Precautions Posterior Hip Precautions No Hip Flexion > 90 degrees,No Hip Internal Rotation,No Hip Adduction Weight Bearing Status Weight Bearing Status Weight Bear as Tolerated Allowed Weight Bearing Amount (enter % LLE WBAT or #) (%) Recommendations To Nursing Amount of Assist Needed 1 Person Assist Discharge Recommendations PT Discharge Recommendations Home with 04/12 Assist Available Transportation Needs at Discharge Private Vehicle,Wheelchair/ Cabulance
--- NOTE | 2022-06-24 15:18 | PT.IPTN ---
Current Diagnoses Unilateral primary osteoarthritis, left hip (06/23/22) Surgery Performed Operation Date: 06/22/22 10:45 Actual Procedures p Total Hip Arthroplasty(Left) - Sarah Alfaro MD Physical Therapy Treatment Note M2 PT-IP Current Condition Start: 06/23/22 12:58 Freq: NEEDED Status: Active Protocol: Document 06/23/22 09:40 AB (Rec: 06/23/22 13:13 AB [id number]) Physical Therapy Current Condition Current Condition Evaluation Date 06/23/22 Treatment Diagnosis s/p L PARMINDER posterior approach; difficulty in walking Onset Date 06/22/22 M3 PT-IP Subjective Start: 06/23/22 12:58 Freq: NEEDED Status: Active Protocol: Document 06/24/22 15:04 SHONDA (Rec: 06/24/22 15:18 LJ [id number]) Subjective Physical Therapy Visit Type Type Treatment Note Visit Start Time 14:01 Visit Stop Time 14:24 Total Visit Minutes 23 Notes CGT with GF Number of INSURANCE ACTUARY Visits 3 Physical Therapy Visit Comments Patient Comments agreeable to do PT Therapy Pain Assessment Pain When Pain Assessed During Mobility Pain Present Pain Present Pain Reported Location Left Hip Pain Management Techniques Apply Cold,Distraction, Modification of Treatment,Re- positioning,Timing of Activity with Medications M4 PT-IP Mobility and Gait Start: 06/23/22 12:58 Freq: NEEDED Status: Active Protocol: Document 06/24/22 15:04 LJ (Rec: 06/24/22 15:18 LJ [id number]) PT-Transfer Assessment Sit to and From Stand Sit to and from Stand Standby Assistance Equipment Transfer Assistive Device Forearm Crutches Orthotic/Prosthetic Devices or Brace: No Transfers Transfer Destination Chair Transfer Ability Level of Assist Standby Assistance Comments Mobility Comments Pts GF assisting pt this session. Pt is SBA with transfers and gait. GF helping him dress and don socks and shoes. Pt has devices at home which he uses to put on his socks and pants. Gait Assessment Gait Gait Assistance Required: Standby Assistance Distance (Feet) 40 Assistive Devices Assistive Device Gait Belt,Forearm Crutches Orthotic/Prosthetic Devices or Brace: No Gait Deviations General Gait Pattern Antalgic,Decreased Stride Length,Decreased Feet Clearance Factors Limiting Gait Function Factors Limiting Gait Function Decreased Activity Tolerance, Decreased Strength,Limited Range of Motion,Pain,Poor Balance Comments Gait Comments Pt ambulated in room with forearm crutches with GF SBA. He has used the crutches in the past and she is familiar with how to assist him M5 PT-IP Objective Assessments Start: 06/23/22 12:58 Freq: NEEDED Status: Active Protocol: Document 06/23/22 09:40 AB (Rec: 06/23/22 13:13 AB [id number]) Orientation Orientation/Cognition Level of Alertness Alert Orientation Name,Place,Situation Language Function Ability No Deficits Noted Safety Awareness Decreased Safety Awareness Memory Description Short Term Impaired Gross Range of Motion Lower Extremity ROM Assessment Within Functional Limits Strength Lower Extremity Strength Assessment Left Impaired Muscle Tone Muscle Tone WNL Yes M6 PT-IP Treatment Start: 06/23/22 12:58 Freq: NEEDED Status: Active Protocol: Document 06/24/22 15:04 SHONDA (Rec: 06/24/22 15:18 LJ [id number]) Physical Therapy Treatment Education Education Provided Precautions,Safety Other Treatments Other Treatment Performed educated pt and GF on HEP, sleeping with pillow between knees, sleeping on back, clearing house of clutter, asking surgeon and PT he will be seeing about doing Aquatic Therapy when incision is healed. M7 PT-IP Assessment and Plan Start: 06/23/22 12:58 Freq: NEEDED Status: Active Protocol: Document 06/24/22 15:04 SHONDA (Rec: 06/24/22 15:18 LJ [id number]) PT Summary Assessment and Plan Potential Rehabilitation Potential Good Status of Condition at Evaluation Evolving Summary Impairments Pain,ROM,Strength,Balance, Coordination,Sensation,Tone, Bed Mobility,Transfers,Gait, Activity Tolerance Assessment Summary Pt has met goals and GF has been through CGT. Pt safe to DC home with assist. Goals Bed Mobility Goal Standby Assistance Transfer Goal Standby Assistance,Front Wheeled Walker Gait Goal Standby Assistance,Front Wheel Walker Gait Distance 150 Other Goals up/down 4 platform steps uisng FWW SBA Days to Meet Goals 5 Treatment Plan Physical Therapy Treatment Plan Bed Mobility Training,Transfer Training,Gait Training, Therapeutic Exercise,Balance Retraining,Post Op Education, Discharge Planning,Hot or Cold Pack,Neuromuscular Re-ed, Coordination Retraining,Manual Therapy Precautions Posterior Hip Precautions No Hip Flexion > 90 degrees,No Hip Internal Rotation,No Hip Adduction Weight Bearing Status Weight Bearing Status Weight Bear as Tolerated Allowed Weight Bearing Amount (enter % LLE WBAT or #) (%) Recommendations To Nursing Amount of Assist Needed 1 Person Assist Discharge Recommendations PT Discharge Recommendations Home with 04/12 Assist Available Transportation Needs at Discharge Private Vehicle,Wheelchair/ Cabulance
== END 2022-06-24 15:12 | disposition home or self-care (01) ==
LOC: OR 14:25 → AC 14:25
PROVIDERS: Admitting Provider Orthopaedic Surgery; Referring Provider Orthopaedic Surgery; Visit Provider Orthopaedic Surgery
PROC: 0SRB0JZ Replacement of Left Hip Joint with Synthetic Substitute, Open Approach (ICD-10-PCS; CPT 27130; principal; 2022-06-22 10:45)
DX: M16.12 Unilateral primary osteoarthritis, left hip (principal); Z20.822 Contact with and (suspected) exposure to COVID-19
CPT/HCPCS: 27130; 36415; 72170; 73502; 85014; 85018; 87635; 97116; 97162; 97530; C1776; C9803; G0378; C9290; J0171; J0690; J2250; J3010

== ENCOUNTER → 2024-07-15 11:32 | Outpatient (CLI) | payer OTHER, SELFPAY ==
[2022-06-22 14:49] VITALS: BMI 32.6
--- NOTE | 2024-07-15 11:41 | EKG_ITS ---
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
== END ==
LOC: RESP 11:33
PROVIDERS: PCP Internal Medicine; Referring Provider Orthopaedic Surgery; Visit Provider Orthopaedic Surgery
DX: Z01.818 Encounter for other preprocedural examination (principal)
CPT/HCPCS: 93005

== ENCOUNTER 2024-07-22 08:12 | Day surgery (SDC) | payer OTHER, SELFPAY ==
[2022-06-22 14:49] VITALS: BMI 32.6
[2024-07-14 08:32] VITALS: BMI 34.1
[2024-07-22] VITALS (10 sets, daily range): BP systolic 102–141; BP diastolic 65–85; PULSE 73–87; RESP 12–16; TEMP 36.3–37; O2SAT 93–99; BMI 33.8
--- NOTE | 2024-07-22 | DI.RAD.S_ITS ---
PROCEDURE: XR HIP W PEL IF DONE RT 4V INDICATIONS: ANTERIOR TOTAL RIGHT HIP TECHNIQUE: AP pelvis with lateral view(s) of the right hip(s). COMPARISON: [facility], CR, XR HIP W PEL IF DONE RT 2V, 07/22/2024, 11:45. FINDINGS: Bones: There are no osseous abnormalities. SI and hip joints: Bilateral total hip prostheses are anatomically aligned without loosening or infection. The SI joints are normal. Soft tissues: Mild soft tissue swelling over the surgical site seen as expected IMPRESSION: Normal bilateral hip prostheses. Dictated by: Nomi Padilla M.D. on 07/23/2024 at 10:54 Approved by: Nomi Padilla M.D. on 07/23/2024 at 10:55
--- NOTE | 2024-07-22 06:00 | DI.RAD.S_ITS ---
PROCEDURE: XR HIP W PEL IF DONE RT 2V INDICATIONS: RIGHT TOTAL HIP TECHNIQUE: 4 intraoperative fluoroscopic view(s) of the hip acquired. COMPARISON: [facility], , XR HIP W PEL IF DONE LT 2V, 06/23/2022, 11:14. FINDINGS: Intraoperative fluoroscopic images shows right total hip arthroplasty in progress. IMPRESSION: * Fluoro guidance was provided intraoperatively for right total hip arthroplasty . Dictated by: Matt Allison M.D. on 07/22/2024 at 13:16 Approved by: Matt Allison M.D. on 07/22/2024 at 13:17
[2024-07-22] MEDS: ACETAMINOPHEN 325 MG TABLET 975 MG PO (09:27)
[2024-07-22] MEDS: LACTATED RINGERS 1,000 ML 42 ML IV ×2 (09:27→12:46)
[2024-07-22] MEDS: VANCOMYCIN 1,000 MG in SODIUM CHLORIDE 0.9% 250 ML 250 MG IV (09:28)
[2024-07-22] MEDS: CELECOXIB 200 MG CAPSULE PO (09:28)
[2024-07-22] MEDS: ALBUTEROL/IPRATROPIUM 3 ML AMPUL INH (09:47)
--- NOTE | 2024-07-22 09:52 | PM.PREOP ---
Pre-operative Note Interval Note History & Physical reviewed/Exam performed by Physician: Yes Changes to H&P: No
--- NOTE | 2024-07-22 09:54 | P.OP_ITS ---
Operative Date/Time/Diagnoses Date of procedure: 07/22/24 Time of procedure: 11:00 Pre-op diagnosis: Right hip OA Post-op diagnosis: same Procedure & Clinicians Procedure: Right total hip arthroplasty anterior approach Same procedure as scheduled: Yes Indications: The patient has had progressively worsening right hip pain with radiographic c hanges consistent with arthritis. Non-operative management has failed and the patient has requested total hip replacement. The risks, benefits and alternatives to surgery were discussed with the patient prior to proceeding. Risks discussed included, but were not limited to, failure to relieve pain, leg length discrepancy, dislocation, stiffness, infection, nerve damage, deep venous thrombosis, pulmonary embolism, stroke, coma, heart attack, permanent paralysis and , as well as the potential need for eventual revision of the prosthetic. Surgeon: Sarah Alfaro Web Marketing Strategist: Linda Elizalde Anesthesia Type: General and Spinal Operative Notes Findings: Severe right hip OA, adequate stability, hard bone Closure Type: primary Specimen(s): none sent Prosthetic devices, grafts, tissues, transplants, or devices: Alfaro and nephew R3 size 54, neutral poly liner, one 6.5 mm screw, size 9 standard offset anthology, 36 x -3 femoral head Oxinium Estimated Blood Loss (mL): 250 Blood products transfused: none Procedure in detail: The patient was brought to the operating room. Patient was carefully positioned in the supine position. Time-out was performed and antibiotics were given. Anesthesia was induced. He was positioned in the on the table in order to allow hyperextension of the hip. The right lower extremity was prepped and draped in a standard sterile fashion. An anterior right hip incision was made 1 fingerbreadth lateral to the anterior superior iliac spine and extended distally towards the greater trochanter. Dissection was carried out through skin and subcutaneous tissues. Superficial hemostasis was achieved. The fascia over the tensor fascia kelechi was defined and incised with a knife. Two Allis clamps were used to grasp the fascia. Tensor fascia kelechi was retracted laterally. A gelpi retractor was placed. Dissection was carried out down along the neck. The circumflex vessels were carefully identified and cauterized with the Aqua Mantis. A PA was used during the procedure and was essential for intraoperative retraction and safe implantation of the components. There was good visualization of the femoral neck. A Cobra was placed superior to the neck and the gluteus fibers were carefully stripped from that superior aspect of the capsule. A 2nd retractor was placed along the inferior aspect of the neck. The rectus insertion along the capsule was partially released. A 3rd retractor that was then gently placed over the rim of the acetabulum under the rectus. Capsule was carefully incised and released from the intertrochanteric line circumferentially superior to the mid sagittal line and inferiorly to the mid sagittal line until the lesser trochanter was palpable. A tag stitch was placed both in the superior and inferior limb of the capsular insertion. Along the acetabulum capsule was also released up to the mid sagittal 12:00 position. A portion of the labrum was resected. A saw was used to perform an osteotomy at the level of the intertrochanteric line and the junction of the superior femoral neck leaving approximately 1 finger breath of residual inferior neck above the lesser trochanter. A 2nd cut was made along the femoral neck at the base of the head and a napkin ring of neck was removed. Corkscrew was placed in the femoral head and the head was removed without difficulty. Retractors were then repositioned around the acetabulum. Residual labrum was resected and additional osteophytes were sedrick radha. A reamer that was 4 mm below the templated size was placed by hand in the acetabulum and it was reamed to centralize the acetabulum. It was then reamed up to 2 under the templated size and fluoroscopy was brought in to confirm the position of the reaming and depth of reaming. I reamed 1 under the anticipated size. A trial cup was placed and noted that it was appropriately sized and fluoroscopy confirmed position and depth. The component was open and inserted without difficulty fluoroscopic imaging was used to confirm that the cup had been adequately seated and was well positioned. It was further stabilized with a single screw. Neutral liner was placed. The cup was tested and noted to be stable. Attention was then directed to the femur. The femur was gently hyperextended additional capsular release was performed as needed in order to allow adequate visualization of the proximal femur with elevation of the femur. Patient was placed in a hyperextended slightly adducted position with maximum external rotation. Box osteotome was used to check for any residual neck as well as sclerotic bone along the trochanter. [employer] pepper was placed in the femur. Additional broaching was performed. Canal finder was used to determine the alignment of the canal and position. Size 1 broach was placed. The canal was then appropriately broached up to the templated size as long as there was a dequate stability of the broach and serial advancement of the broach without excessive impingement. Specific attention was directed at avoiding varus attempting to direct the distal aspect of the broach more anteriorly and avoiding excessive anteversion. Trial reduction showed acceptable range of motion, good stability, no posterior impingement, hinduism of leg length and appropriate lateral shuck. I also hyperflexed the hip and checked that there was no impingement anteriorly and there was good stability with flexion, adduction and internal rotation. Marcaine and Exparel were injected. The stem was placed without difficulty. Repeat trial reduction and x-ray showed acceptable overall position, length, and no evidence of the femoral fracture. Final head was placed. Wound was meticul ously irrigated with normal saline. The hip was reduced and additional Exparel and Marcaine were injected. The capsule was closed with interrupted nonabsorbable sutures. The fascia of the tensor was closed with interrupted and running Vicryl. No drain was placed. Any tensor fascia kelechi muscle that appeared to be contused or injured which was a minimal amount was carefully resected. Capsule around the tensor was injected with Exparel and Marcaine. The skin was closed with barbed stitches for the subcutaneous tissue and skin. We also used surgical glue. The wound was dressed sterilely. Brief Betadine soak was also used and was meticulously irrigated with normal saline. Patient was transferred to recovery room in satisfactory condition. Complications: none Post-operative Condition: stable Plan for aftercare: The patient will be maintained on a standard total hip replacement protocol with weight bearing as tolerated and anterior hip precautions. The patient will receive Aspirin and sequential compression devices for DVT prophylaxis. The patient will be discharged home when safe for the home environment.
--- NOTE | 2024-07-22 09:54 | PM.PREOP ---
Pre-operative Note Interval Note History & Physical reviewed/Exam performed by Physician: Yes Changes to H&P: No
[2024-07-22] MEDS: CEFAZOLIN 2 GM/100 ML PREMIX 100 ML IV ×2 (10:55→18:45)
[2024-07-22] MEDS: TRANEXAMIC ACID 1,000 MG VIAL 2000 MG INJ ×2 (11:26→12:46)
[2024-07-22] MEDS: BUPIVACAINE LIPOSOME 266 MG/20 ML VIAL INJ (11:26)
[2024-07-22] MEDS: BUPIVACAINE 0.25% W/ EPI 30 ML VIAL 60 ML INJ (11:27)
[2024-07-22] MEDS: hydrOXYzine 50 MG/ML INJ 25 MG IM (14:08)
[2024-07-22] MEDS: ONDANSETRON 4 MG/2 ML INJ IV (14:08)
[2024-07-22] MEDS: OXYCODONE IR 5 MG TABLET PO ×3 (14:08→18:44)
[2024-07-22] MEDS: LACTATED RINGERS 1,000 ML 100 ML IV (14:47)
[2024-07-22] MEDS: IBUPROFEN 400 MG TABLET PO ×2 (15:01→18:44)
[2024-07-22] MEDS: ACETAMINOPHEN 325 MG TABLET 650 MG PO (15:02)
--- NOTE | 2024-07-22 15:25 | PT.IIE ---
Current Diagnoses Unilateral primary osteoarthritis, right hip (07/22/24) Surgery Performed Operation Date: 07/22/24 10:45 Actual Procedures p Total Hip Arthroplasty/Anterior Approach(Right) - Sarah Alfaro MD Surgical History (Last Updated 07/14/24 @ 08:39 by Florinda Macedo, RN) History of shoulder surgery History of total left knee replacement (12/05/17) History of total right hip replacement (06/22/22) History of total right knee replacement (03/28/21) Hx of arthroscopy of left knee Hx of repair of left rotator cuff Hx of tonsillectomy [place] teeth extracted Medical History (Last Updated 07/14/24 @ 09:05 by Florinda Macedo RN) Asthma Cervical spinal cord injury COVID-19 virus infection (03/2022) Depression Dupuytren's contracture of both hands Finger amputation, traumatic GERD (gastroesophageal reflux disease) HTN (hypertension) Lumbar spinal cord injury Peyronie's disease PTSD (post-traumatic stress disorder) Spinal stenosis Physical Therapy Inpatient Evaluation/Re-Eval M1 PT/OT-IP Prior Functional Status Start: 07/22/24 17:16 Freq: NEEDED Status: Active Protocol: Document 07/22/24 15:25 AB (Rec: 07/22/24 17:30 AB [id number]) Medical Review Prior Functional Status Medical History Reviewed Yes Communication able to make needs known Mobility and Gait pt stated that he uses his forearm crutches 40% of the time and 60% without. Activities of Daily Living and IADL's Pt able to do ADL needs on his own. Social History Household Members none Living Arrangements House Number of Floors (Floors) One Floor Number of Stairs To Enter/Railing? one step over the curb and 2 platform steps to get into the house. Home Environment High Toilet,Walk in Shower, Built-In Shower Seat Home Equipment Front Wheel Walker,Four Wheel Walker,Crutches,Manual Wheelchair,Raised Toilet Seat w/Armrests,Shower Seat with Backrest,Hand Held Shower,Long Handled Sponge,Long Handled Shoe Horn,Community Liaison Officer,Sock Aid, Lift Recliner,Grab Bars Near Toilet,Grab Bars In Shower Additional Social History Comment Pt to have his friend's and friend's son to assist him. Pt has a service dog, Garry. M2 PT-IP Current Condition Start: 07/22/24 17:16 Freq: NEEDED Status: Active Protocol: Document 07/22/24 15:25 AB (Rec: 07/22/24 17:30 AB [id number]) Physical Therapy Current Condition Current Condition Evaluation Date 07/22/24 Treatment Diagnosis s/p R PARMINDER anterior; difficulty in walking Onset Date 07/22/24 M3 PT-IP Subjective Start: 07/22/24 17:16 Freq: NEEDED Status: Active Protocol: Document 07/22/24 15:25 AB (Rec: 07/22/24 17:30 AB [id number]) Subjective Physical Therapy Visit Type Type Initial Evaluation Visit Start Time 15:25 Visit Stop Time 16:45 Number of LOADING MACHINE OPERATOR Visits 0 Physical Therapy Visit Comments Patient Comments agreeable to do PT Therapy Pain Assessment Pain When Pain Assessed At Rest Pain Present Pain Present Denied Pain M4 PT-IP Mobility and Gait Start: 07/22/24 17:16 Freq: NEEDED Status: Active Protocol: Document 07/22/24 15:25 AB (Rec: 07/22/24 17:30 AB [id number]) PT-Bed Mobility Assessment Supine to Sit Supine to Sit Standby Assistance PT-Transfer Assessment Sit to and From Stand Sit to and from Stand Minimal Assistance,1 Person Assistance,Use of Upper Extremities Equipment Transfer Assistive Device Gait Belt,Forearm Crutches Orthotic/Prosthetic Devices or Brace: No Transfers Transfer Destination Chair Transfer Technique ambulated Transfer Ability Level of Assist Minimal Assistance,1 Person Assistance,Use of Upper Extremities Comments Mobility Comments pt in bed and agreed to do PT. pt wants to go home. pt's friends and service dog in room with pt. obtained PLOF and home set up. pt easily gets anxious and agitated. educated pt regarding R hip anterior precautions. post-op folder provided to pt. BP: 133/68. pt completed supine to sit SBA . able to sit on EOB SBA. BP: 127/64. sit to stand from EOB min A and cues. pt with uncontrolled bladder and needed to sit back on EOB. cleaned up and gown change and set up brief. pt used bilateral FA crutches for support. tried to stand again min A and pt again with uncontrolled voiding. sat back on EOB. pt needed to be cleaned up again. sit to stand from EOB min A and assisted with brief management . pt ambulated to the chair using FA crutches min A. caregiver training conducted. pt's friend was able to put safety belt on pt and assisted pt with sit to stand min A. pt ambulated towards the platform walker min A and completed up/down platform step using B FA crutches min A . repeated 2 sets. pt's friend was able to assist pt. pt ambulated down the hallway ~ 75 ft using FA crutches min A. assisted pt back to his room. ambulated from w/c to chair using FA crutches min A. positioned pt on the chair. left pt with friends and OT. Gait Assessment Gait Gait Assistance Required: Minimum Assistance,1 Person Assist Distance (Feet) 75 Able to Maintain Weight Bearing Status Yes During Gait Assistive Devices Assistive Device Gait Belt,Forearm Crutches Orthotic/Prosthetic Devices or Brace: No Factors Limiting Gait Function Factors Limiting Gait Function Decreased Activity Tolerance, Decreased Strength,Difficulty Following Directions,Limited Range of Motion,Poor Balance, Poor Safety Awareness Stair Climbing Assessment Evaluation Level of Assist On Stairs Minimal Assistance Devices Stair Climbing Assistive Devices Forearm Crutches Technique/Endurance Stair Climbing Direction Ascend and Descend Stair Climbing Technique Step to Step Number of Steps Climbed 1 Query Text: Stair Climbing Set # Repetitions (reps) 2 PT-Balance Assessment Sitting Balance and Reactions Static Sitting Balance Ability Normal Dynamic Sitting Balance Ability Good Standing Balance and Reactions Static Standing Balance Ability Fair Dynamic Standing Balance Ability Fair Device Used crutches M5 PT-IP Objective Assessments Start: 07/22/24 17:16 Freq: NEEDED Status: Active Protocol: Document 07/22/24 15:25 AB (Rec: 07/22/24 17:30 AB [id number]) Orientation Orientation/Cognition Level of Alertness Alert Orientation Name Safety Awareness Decreased Safety Awareness Gross Range of Motion Lower Extremity ROM Assessment Within Functional Limits Strength Lower Extremity Strength Assessment Within Functional Limits Coordination Assessment Gross Coordination Gross Coordination WNL Sensation Assessment Sensation Gross Sensation WNL Muscle Tone Muscle Tone WNL Yes M6 PT-IP Treatment Start: 07/22/24 17:16 Freq: NEEDED Status: Active Protocol: Document 07/22/24 15:25 AB (Rec: 07/22/24 17:30 AB [id number]) Physical Therapy Treatment Education Education Provided Precautions,Weight Bearing Status,Post-Op Packet,Safety M7 PT-IP Assessment and Plan Start: 07/22/24 17:16 Freq: NEEDED Status: Active Protocol: Document 07/22/24 15:25 AB (Rec: 07/22/24 17:30 AB [id number]) PT Summary Assessment and Plan Potential Rehabilitation Potential Fair Status of Condition at Evaluation Evolving Summary Impairments Pain,ROM,Strength,Balance, Coordination,Sensation,Tone, Cognition,Bed Mobility, Transfers,Gait,Activity Tolerance Assessment Summary pt is a 59 y/o M s/p R PARMINDER anterior approach POD 0. pt with R hip anterior precautions and is WBAT. pt requiring min A with mobility using FA crutches and plans to go home with his friend to assist him. caregiver training conducted and pt's friend was able to assist pt with mobility. pt will benefit from outpt PT. Goals Bed Mobility Goal Independent Transfer Goal Independent,Crutches Gait Goal Independent,Crutches Gait Distance 200 Other Goals up/down 3 platform steps using FA crutches mod I Days to Meet Goals 5 Frequency of Treatment Frequency Of Treatment Twice a Day Treatment Plan Physical Therapy Treatment Plan Bed Mobility Training,Transfer Training,Gait Training, Therapeutic Exercise,Balance Retraining,Post Op Education, Discharge Planning,Hot or Cold Pack,Neuromuscular Re-ed, Coordination Retraining,Manual Therapy Precautions Anterior Hip Precautions No Hip Extension,No Hip External Rotation Weight Bearing Status Weight Bearing Status Weight Bear as Tolerated Allowed Weight Bearing Amount (enter % RLE WBAT or #) (%) Recommendations To Nursing Amount of Assist Needed 1 Person Assist Discharge Recommendations PT Discharge Recommendations Home with 04/12 Assist Available,Outpatient PT Transportation Needs at Discharge Private Vehicle,Wheelchair/ Cabulance - PT assist 1 PA
--- NOTE | 2024-07-22 16:40 | OT.IP.EVAL ---
Current Diagnoses Unilateral primary osteoarthritis, right hip (07/22/24) Surgery Performed Operation Date: 07/22/24 10:45 Actual Procedures p Total Hip Arthroplasty/Anterior Approach(Right) - Sarah Alfaro MD Past Medical History (Last Updated 07/14/24 @ 09:05 by Florinda Macedo, RN) Asthma Cervical spinal cord injury COVID-19 virus infection (03/2022) Depression Dupuytren's contracture of both hands Finger amputation, traumatic GERD (gastroesophageal reflux disease) HTN (hypertension) Lumbar spinal cord injury Peyronie's disease PTSD (post-traumatic stress disorder) Spinal stenosis Surgical History (Last Updated 07/14/24 @ 08:39 by Florinda Macedo, RN) History of shoulder surgery History of total left knee replacement (12/05/17) History of total right hip replacement (06/22/22) History of total right knee replacement (03/28/21) Hx of arthroscopy of left knee Hx of repair of left rotator cuff Hx of tonsillectomy Latty teeth extracted Occupational Therapy Inpatient Evaluation/Re-Eval M1 PT/OT-IP Prior Functional Status Start: 07/22/24 16:43 Freq: NEEDED Status: Active Protocol: Document 07/22/24 16:43 [facility] (Rec: 07/22/24 16:55 [facility] [id number]) Medical Review Prior Functional Status Communication I Mobility and Gait Pt able to use the forearm crutches 40% of the time and 60% without. Activities of Daily Living and IADL's Pt able to do ADL needs on his own. Prior Functional Level (Other details) Pt to have his friend's and friend's son to assist him. Pt has a service dog, Garry. Social History Household Members none Living Arrangements House Number of Floors (Floors) One Floor Number of Stairs To Enter/Railing? one step over the curb and 2 platform steps to get into the house. Home Environment High Toilet,Walk in Shower, Built-In Shower Seat Home Equipment Front Wheel Walker,Four Wheel Walker,Raised Toilet Seat w/ Armrests,Shower Seat with Backrest,Hand Held Shower,Long Handled Sponge,Long Handled Shoe Horn,Mattress Filling Machine Tender,Sock Aid, Lift Recliner,Grab Bars Near Toilet,Grab Bars In Shower M2 OT-IP Current Condition Start: 07/22/24 16:43 Freq: Status: Active Protocol: Document 07/22/24 16:43 [facility] (Rec: 07/22/24 16:55 [facility] [id number]) Occupational Therapy Current Condition Current Condition Evaluation Date 07/22/24 Treatment Diagnosis S/P R PARMINDER anterior approach Diagnosis Onset Date 07/22/24 Post Operative Precautions Anterior Hip Precautions No Hip Extension,No Hip External Rotation M3 OT- IP Subjective and Pain Start: 07/22/24 16:43 Freq: Status: Active Protocol: Document 07/22/24 16:43 [facility] (Rec: 07/22/24 16:55 [facility] [id number]) OT- Subjective Occupational Therapy Visit Type Type Initial Evaluation Visit Start Time 15:15 Visit Stop Time 16:40 Occupational Therapy Visit Comments Patient Comments Pt wanting to go home today. Pt's friend's present for caregiver training. Patient/Caregiver Goals To go home. OT Pain Assessment Pain When Pain Assessed At Rest Pain Present Pain Present Pain Reported Location Right Hip Intensity 3 Scale Used Numeric (0 - 10) M4 OT- IP ADL's Start: 07/22/24 16:43 Freq: Status: Active Protocol: Document 07/22/24 16:43 [facility] (Rec: 07/22/24 16:55 [facility] [id number]) OT [id number] Comments OT Self-Feeding Comments Not at meal time. OT ADL-Grooming Comments OT Grooming Comments NOt performed. OT ADL-Oral Care Comments Oral Care Comments NOt performed. OT ADL-Dressing General Eval Upper Body Dressing Ability Minimal Assistance Lower Body Dressing Ability Maximum Assistance Areas Needing Assistance Socks Comments OT Dressing Comments Assist for gown and socks. Pt urinating several times and unable to control it. Educated to dress his RLE first and take out last. OT ADL-Toileting General Evaluation Toileting Ability Moderate Assistance Areas Needing Assistance Manage Clothing,Perform Perineal Hygiene Comments OT Toileting Comments Assist to hygiene and clothing . OT ADL-Bathing Comments OT Bathing Comments Pt has built in seat and also shower chair with back to use. Spoke of care for dressing needs the shower. M5 OT- IP IADL's Start: 07/22/24 16:43 Freq: Status: Active Protocol: Document 07/22/24 16:43 [facility] (Rec: 07/22/24 16:55 [facility] [id number]) OT-Instrumental Activities of Daily Living Home Safety Awareness Awareness of Need for Assistance at Home Good Awareness Ability to Problem Solve Emergency Able to Problem Solve Situations Medication Management Medication Management Comments Pt did prior but will have assist as needed. Meal Preparation Meal Preparation Caregiver Provides Assist Meal Preparation Comments Pt to have friends assist. Instrument Repair Specialist Instrument Repair Specialist Caregiver Provides Assist Instrument Repair Specialist Comments Pt to have friends assist. M6 OT- IP Functional Cognition Start: 07/22/24 16:43 Freq: Status: Active Protocol: Document 07/22/24 16:43 [facility] (Rec: 07/22/24 16:55 [facility] [id number]) Cognitive Factors Limiting Selfcare Function Cognitive Ability Level of Alertness Alert,Drowsy Patient Orientation Name,Age,Birthday,Month,Date, Year,Day of Week,Place, Situation Attention Span Ability Capable of Focused Attention, Capable of Sustained Attention Ability to Follow Commands Able to Follow One Step Commands Safety Awareness Underestimates Need for Assistance Cognitive Comments Cognitive Assessment Comments Pt still a bit groggy but able to follow commands. Pt getting frustrated as urinating on the floor as unable to feel that he has to go as just had surgery this AM . Pt's service dog in the room for part of the time and able to comfort pt. Pt also need encouragement to take his time. M7 OT- IP Mobility and Balance Start: 07/22/24 16:43 Freq: Status: Active Protocol: Document 07/22/24 16:43 [facility] (Rec: 07/22/24 16:55 [facility] [id number]) OT- Bed Mobility Assessment Supine to Sit Supine to Sit Assist Standby Assistance OT-Transfer Assessment Sit to and From Stand Sit to and from Stand Minimal Assistance Transfers Transfer Ability Minimal Assistance Technique Transfer Destination Bed,Chair Devices Transfer Assistive Devices Gait Belt,Forearm Crutches Comments Mobility Comments JENNY to stand with forearm crutches. Pt's friend able to assist pt for transfers and steps. OT- Balance Assessment Sitting Balance and Reactions Static Sitting Balance Ability Good Dynamic Sitting Balance Ability Good Standing Balance and Reactions Static Standing Balance Ability Fair Dynamic Standing Balance Ability Fair M8 OT- IP Objective Assessments Start: 07/22/24 16:43 Freq: Status: Active Protocol: Document 07/22/24 16:43 [facility] (Rec: 07/22/24 16:55 [facility] [id number]) OT Gross Range of Motion Upper Extremity Range of Motion Assessment Within Functional Limits OT Strength Upper Extremity Strength Assessment Within Functional Limits M9 OT- IP Assessment and Plan Start: 07/22/24 16:43 Freq: Status: Active Protocol: Document 07/22/24 16:43 [facility] (Rec: 07/22/24 16:55 [facility] [id number]) OT Summary Assessment and Plan Potential Rehabilitation Potential Excellent Analytic Complexity at Evaluation Low Summary OT Impairments Pain,Balance,Functional Mobility,Dressing,Toileting, Bathing,Toilet Transfers, Shower Transfers Progress Towards Goals Progressing Toward Goals Assessment Summary Pt low complexity and main barriers are steps, still a bit groggy and not able to control his urine at this time . Pt to have friends assist him and requesting to do home health initially. Pt will benefit from outpt PT when able. Goals Self-Feeding Goal Independent Grooming Goal Independent Dressing Goal Independent,Long Handled Shoe Horn,Mattress Filling Machine Tender,Sock Aid Toileting Goal Independent Bathing Goal Standby Assistance Toilet Transfer Goal Independent Shower Transfer Goal Standby Assistance Days to Meet Goals 5 Frequency of Treatment Other frequency 5x/week Treatment Plan OT Treatment Plan ADL Training,Functional Mobility,Patient/Family Education,Discharge Planning Discharge Recommendations OT Discharge Recommendations Home with 24/ Assist Available,Home Health, Outpatient PT Transportation Needs at Discharge Private Vehicle
[2024-07-22] MEDS: DOCUSATE 100 MG CAPSULE PO (20:35)
[2024-07-22] MEDS: ASPIRIN EC 81 MG TABLET PO (20:35)
== END 2024-07-22 21:05 | disposition home or self-care (01) ==
LOC: OR 08:12 → AC 08:13
PROVIDERS: PCP Internal Medicine; Referring Provider Orthopaedic Surgery; Visit Provider Orthopaedic Surgery
PROC: (CPT 27130; principal; 2024-07-22 10:45)
DX: M16.11 Unilateral primary osteoarthritis, right hip (principal); M25.751 Osteophyte, right hip
CPT/HCPCS: 27130; 73502; 73503; 76000; 97162; 97165; 97530; 97535; C1776; J0666; J0690; J1100; J2250; J2405; J2704; J3410